=== PATIENT | female | born 1955 | race Caucasian/White ===

== ENCOUNTER 2018-05-02 18:50 | Inpatient (IN) | payer OTHER ==
--- NOTE | 2018-05-02 19:20 | PDOC ---
History of Present Illness - General History Source: Patient, Friend Exam Limitations: No Limitations - History of Present Illness Initial Comments: 05/02/18 22:13 Patient is a 62 year old female with a significant past medical history of who was brought by EMS to the ED with complaints of dizziness that began early this evening. Patient reports waking up this morning at 10 feeling progressively dizzy. As per patient's neighbor, he states finding patient this evening at 5pm. He reports patient has been experiencing decreased appetite for the last x3 days, stating she has only been ingesting soup and has experienced x1 episode of non bloody vomiting, saturday afternoon. Denies chest pain, Sob. Denies nausea, vomiting. Denies contact with sick individuals, out of state travelling. Denies fevers, chills. Denies dysuria, hematuria, constipation, diarrhea. Denies change in vision, head trauma. Denies any other symptoms. Allergies: Penicillin. 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 No smoking. No alcohol. No illicit drugs. Surgical history: None PMD: None <Demetri Mckeon - Last Filed: 05/02/18 23:34> <Gabriella Mccray - Last Filed: 05/03/18 01:38> - General Stated Complaint: BACK PAIN Time Seen by Provider: 05/02/18 19:15 Past History <Demetri Mckeon - Last Filed: 05/02/18 23:34> <Gabriella Mccray - Last Filed: 05/03/18 01:38> - Past Medical History Allergies/Adverse Reactions: Allergies Allergy/AdvReac Type Severity Reaction Status Date / Time Penicillins Allergy Verified 05/02/18 19:45 Home Medications: Ambulatory Orders Atenolol/Chlorthalidone [Atenolol-Chlorthalidone 100-25] 1 each PO DAILY Cholecalciferol (Vitamin D3) [Vitamin D3] 5,000 unit PO DAILY 05/02/18 Garlic 1,000 mg PO DAILY 05/02/18 Review of Systems - Review of Systems Able to Perform ROS?: Yes Comments:: 05/02/18 22:13 GENERAL/CONSTITUTIONAL: No fever or chills. No weakness. HEAD, EYES, EARS, NOSE AND THROAT: No change in vision. No ear pain or discharge. No sore throat. CARDIOVASCULAR: No chest pain or shortness of breath. RESPIRATORY: No cough, wheezing, or hemoptysis. GASTROINTESTINAL: No nausea, vomiting, diarrhea or constipation. GENITOURINARY: No dysuria, frequency, or change in urination. MUSCULOSKELETAL: No joint or muscle swelling or pain. No neck or back pain. SKIN: No rash NEUROLOGIC: +Dizziness. No headache, vertigo, loss of consciousness, or change in strength/sensation. ENDOCRINE: No increased thirst. No abnormal weight change. HEMATOLOGIC/LYMPHATIC: No anemia, easy bleeding, or history of blood clots. ALLERGIC/IMMUNOLOGIC: No hives or skin allergy. All Other Systems: Reviewed and Negative <Demetri Mckeon - Last Filed: 05/02/18 23:34> *Physical Exam - Vital Signs Last Vital Signs Temp Pulse Resp BP Pulse Ox 99.8 F H 130 H 25 H 107/56 96 05/02/18 19:48 05/02/18 20:05 05/02/18 19:48 05/02/18 19:48 05/02/18 20:05 - Physical Exam Comments: 05/02/18 22:13 GENERAL: Awake, alert, and fully oriented, in no acute distress HEAD: No signs of trauma EYES: +Scleral icterus. PERRLA, EOMI,, conjunctiva clear ENT: +Mouth Extremely Dry. Auricles normal inspection, hearing grossly normal, nares patent, oropharynx clear without exudates. NECK: Normal ROM, supple, no lymphadenopathy, JVD, or masses LUNGS: Breath sounds equal, clear to auscultation bilaterally. No wheezes, and no crackles HEART: +Tachycardic. Regular rhythm, normal S1 and S2, no murmurs, rubs or gallops ABDOMEN: Soft, nontender, normoactive bowel sounds. No guarding, no rebound. No masses EXTREMITIES: Normal range of motion, no edema. No clubbing or cyanosis. No cords, erythema, or tenderness MUSCULOSKELETAL: +Lower back midline tenderness. NEUROLOGICAL: +AAOx1. +following commands. +States lives with son,who is in [place], +Believes it to be year 1991. +Babinski's down. +Romberg negative. + Strength equal in all x4 extremities. Cranial nerves II through XII grossly intact. Normal speech, SKIN: Warm, Dry, normal turgor, no rashes or lesions noted. <LindaDemetri - Last Filed: 05/02/18 23:34> Heart Score/ECG Review - ECG Intrepretation Comment:: 05/02/18 20:16 Completed @19:28:33 Poor data quality, interpretation may be adversely affected Sinus Tachycardia Possible Left atrial enlargement Left ventricular hypertrophy with repolarization abnormality Abnormal ECG Vent. rate [address] interval 124 ms QRS duration 72 ms <Demetri Mckeon - Last Filed: 05/02/18 23:34> ED Treatment Course - LABORATORY CBC & Chemistry Diagram: 05/02/18 19:59 05/02/18 20:45 - ADDITIONAL ORDERS Additional order review: 05/02/18 19:59 RBC 4.96 MCV 78.6 L MCHC 33.3 RDW 15.2 MPV 11.8 H Neutrophils % 80.0 Lymphocytes % 16.6 Monocytes % 2.9 L Eosinophils % 0.1 Basophils % 0.4 - Medications Given in the ED: ED Medications Discontinued Medications Generic Name Dose Route Start Last Admin Trade Name Kia PRN Reason Stop Dose Admin Acetaminophen 1,000 mg 05/02/18 20:10 05/02/18 20:13 Ofirmev Injection - IVPB 05/02/18 20:11 1,000 mg ONCE ONE Administration Sodium Chloride 1,000 ml 05/02/18 20:10 05/02/18 20:13 Normal Saline - IV 05/02/18 20:11 1,000 ml ONCE ONE Administration <LindaDemetri - Last Filed: 05/02/18 23:34> - LABORATORY CBC & Chemistry Diagram: 05/02/18 19:59 05/02/18 20:45 <Gabriella Mccray - Last Filed: 05/03/18 01:38> Medical Decision Making - Medical Decision Making 05/02/18 20:36 Pt comes with confusion and fever and severe dehydration. Complaint of back pain x 3 days, decreased appetite and intake x 3 days also with nausea and an episode of vomtiing. Today her roommate came home at 5P and found that she was confused and not acting her self and called 911. He last saw her at 5AM when he left the house. 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 05/02/18 23:31 Pt keeps moaning about her back pain, unclear if she may have a spinal abscess or occult infection, pt's CT TL spine are normal however. On arrival pt's pulsox was low. Portable chest is inconclusive; CT scan demonstrates small infiltrate in the basilar area. Also small pleural effusion. Pt will be treated with levaquin as she is PCN allergic. <Gabriella Mccray - Last Filed: 05/03/18 01:38> *DC/Admit/Observation/Transfer - Attestations Scribe Attestion: 05/02/18 22:14 Documentation prepared by Demetri Mckeon, acting as emergency medical tech for Gabriella Mccray MD. <Demetri Mckeon - Last Filed: 05/02/18 23:34> - Discharge Dispostion Decision to Admit order: Yes <Gabriella Mccray - Last Filed: 05/03/18 01:38> Diagnosis at time of Disposition: Secondary hyperthyroidism, Pneumonia, Dehydration, Hypokalemia, Back pain, Confusion, Altered mental status - Discharge Dispostion Condition at time of disposition: Guarded
[2018-05-02 20:05] LABS: BASO % 0.4 % (0-2.0); EOS % 0.1 % (0-4.5); LYMPH % 16.6 % (8-40); MCH 26.1 pg (25.7-33.7); MCHC 33.3 g/dl (32.0-36.0); MEAN CELL VOLUME 78.6 fl (80-96); MEAN PLT VOLUME 11.8 fl (7.5-11.1); MONO % 2.9 % (3.8-10.2); PLATELET COUNT 101 K/MM3 (134-434); RBC 4.96 M/mm3 (3.60-5.2); RDW 15.2 % (11.6-15.6); WHITE BLOOD COUNT 25.6 K/mm3 (4.0-10.0)
[2018-05-02] MEDS ORDERED: SODIUM CHLORIDE 0.9% 500 ML INFUS.BAG IV ONE (20:10)
[2018-05-02] MEDS ORDERED: ACETAMINOPHEN 1000 MG/100 ML VIAL (NON FORMULARY) IVPB ONE (20:10)
[2018-05-02] MEDS ORDERED: ACETAMINOPHEN INJECTION 100 ML IVPB ONE (20:14)
[2018-05-02 20:23] LABS: VENOUS PC02 46.8 mmHg (38-52); VENOUS PH 7.33 (7.32-7.42); VENOUS PO2 32.9 mmHg (28-48)
[2018-05-02 20:30] LABS: URINE APPEARANCE CLEAR; URINE BILIRUBIN NEGATIVE (<2.0 mg/dL); URINE COLOR YELLOW; URINE GLUCOSE (UA) NEGATIVE (NEGATIVE); URINE KETONE NEGATIVE (NEGATIVE)
[2018-05-02 20:31] LABS: INR 1.24 (0.82-1.09)
[2018-05-02 20:31] LABS: URINE BLOOD 2+ (NEGATIVE); URINE LEUK ESTERASE 1+ (NEGATIVE); URINE NITRITE NEGATIVE (NEGATIVE); URINE PROTEIN NEGATIVE (NEGATIVE); URINE UROBILINOGEN 4 mg/dL (0.2-1.0)
[2018-05-02 20:33] LABS: EPI CELLS FEW /HPF (FEW); URINE BACTERIA RARE /hpf (NONE SEEN); URINE MUCUS MODERATE
[2018-05-02 21:49] LABS: ALBUMIN 2.3 g/dl (3.4-5.0); ANION GAP 10 (8-16); BLOOD UREA NITROGEN 49 mg/dL (7-18); CALCIUM 7.9 mg/dL (8.5-10.1); CHLORIDE 108 mmol/L (98-107); CO2 25 mmol/L (21-32); CREATININE 2.3 mg/dL (0.55-1.02); GLUCOSE,RANDOM 119 mg/dL (74-106); POTASSIUM 3.1 mmol/L (3.5-5.1); SGOT/AST 83 U/L (15-37); SGPT/ALT 95 U/L (12-78); SODIUM 143 mmol/L (136-145)
[2018-05-02 21:59] LABS: ALK PHOS 230 U/L (45-117); BILIRUBIN,TOTAL 5.4 mg/dL (0.2-1.0); TOT PROT 5.7 g/dl (6.4-8.2)
[2018-05-02 22:12] LABS: ANISOCYTOSIS 1+; MACROCYTOSIS 1+
[2018-05-02 22:15] LABS: PLATELET ESTIMATE SLT DECREASE
[2018-05-02] MEDS ORDERED: MAGNESIUM SULF 50% (8.12 MEQ/2 ML-1 GM VIAL) IVPB ONE (22:15)
[2018-05-02] MEDS ORDERED: POTASSIUM CHLORIDE TABS 20 MEQ TABLET.ER (FP) PO ONE (22:16)
[2018-05-02] MEDS ORDERED: morphine CARPU-JECT 2 MG/1 ML DISP.SYRIN ONE (22:16)
[2018-05-02] MEDS ORDERED: morphine CARPU-JECT 2 MG/1 ML DISP.SYRIN IVPUSH ONE (22:20)
[2018-05-02] MEDS ORDERED: MAGNESIUM SULF 50% (8.12 MEQ/2 ML-1 GM VIAL) ONE (22:57)
[2018-05-02] MEDS: KCL 10 MEQ IVPB 10 MEQ/100 ML INFUS.BAG IVPB SCH ×2 (23:03→23:50)
[2018-05-02] MEDS ORDERED: DEXAMETHASONE 4 MG TABLET (FP) PO ONE (23:15)
[2018-05-02 23:41] LABS: URINE APPEARANCE CLOUDY; URINE BLOOD 2+ (NEGATIVE); URINE COLOR AMBER; URINE GLUCOSE (UA) NEGATIVE (NEGATIVE); URINE KETONE NEGATIVE (NEGATIVE); URINE LEUK ESTERASE NEGATIVE (NEGATIVE); URINE NITRITE NEGATIVE (NEGATIVE); URINE UROBILINOGEN 4.0 E.U/dl mg/dL (0.2-1.0)
[2018-05-02 23:42] LABS: URINE PROTEIN 2+ (NEGATIVE)
[2018-05-02 23:45] LABS: EPI CELLS RARE /HPF (FEW); URINE BACTERIA RARE /hpf (NONE SEEN); URINE MUCUS RARE
[2018-05-03] MEDS ORDERED: DEXAMETHASONE SOD PHOSPHATE 4 MG/1 ML VIAL ONE (00:19)
[2018-05-03] MEDS ORDERED: SODIUM CHLORIDE 1,000 ML IV STA (00:41)
[2018-05-03] MEDS: KCL 10 MEQ IVPB 10 MEQ/100 ML INFUS.BAG IVPB SCH (00:51)
[2018-05-03] MEDS ORDERED: POTASSIUM CHLORIDE TABS 20 MEQ TABLET.ER (FP) PO ONE (00:53)
[2018-05-03] MEDS ORDERED: KCL 10 MEQ IVPB 10 MEQ/100 ML INFUS.BAG IVPB ONE (00:54)
--- NOTE | 2018-05-03 02:35 | HP ---
CHIEF COMPLAINT: leg pain, dizziness, nausea/vomiting PCP: none HISTORY OF PRESENT ILLNESS: Pt is a 62 y/o F very poor historian who reportedly initially complained of dizziness on arriving in the ED. In my interview, she first complained of pain in the right thigh. She later endorsed dizziness, and upon prompting, she admitted to vomiting food contents and roughly a spoon full of blood yesterday . Pt was not able to give much detail beyond that. ER course was notable for: (1) WBC 25, plt 101, K 3.1 (repleted in ED), BUN/Ergonomist 49/2.3, Lactate 2.4 -> 1.6 , Tbili 5.4, AST 83, ALT 95, ALK Phos 230, TSH 0.14, UA 2+ protein / 2+ blood / urobilinogen 4 (2) CXR rotated pending official read, Head CT: s/p craniotomy/focal nonspecific thickening ? malignancy / encephalomalacia / ventricular dilation, Chest CT: small right postero-basilar infiltrate, T-spine & L-spine: L4-5, L5- S1 b/l degenerative facet deterioration. (3) Pt received 1 L NS, Levaquin, Recent Travel: denies PAST MEDICAL HISTORY: denies PAST SURGICAL HISTORY: denies Social History: Smoking: former smoker 4 cig/d x 8 years quit several years ago Alcohol: denies Drugs: denies Family History: denies Allergies Penicillins Allergy (Verified 05/02/18 19:45) HOME MEDICATIONS: Home Medications Medication Instructions Recorded Atenolol/Chlorthalidone 1 each PO DAILY 05/02/18 [Atenolol-Chlorthalidone 100-25] Cholecalciferol (Vitamin D3) 5,000 unit PO DAILY 05/02/18 [Vitamin D3] Garlic 1,000 mg PO DAILY 05/02/18 REVIEW OF SYSTEMS CONSTITUTIONAL: fever, chills, diaphoresis, loss of appetite Absent: , generalized weakness, malaise, weight change HEENT: Absent: rhinorrhea, nasal congestion, throat pain, throat swelling, difficulty swallowing, mouth swelling, ear pain, eye pain, visual changes CARDIOVASCULAR: Absent: chest pain, syncope, palpitations, irregular heart rate, lightheadedness , peripheral edema RESPIRATORY: shortness of breath Absent: cough, , dyspnea with exertion, orthopnea, wheezing, stridor, hemoptysis GASTROINTESTINAL:nausea, vomiting Absent: abdominal pain, abdominal distension, , diarrhea, constipation, melena, hematochezia GENITOURINARY: Absent: dysuria, frequency, urgency, hesitancy, hematuria, flank pain, genital pain MUSCULOSKELETAL: back pain Absent: myalgia, arthralgia, joint swelling,, neck pain SKIN: Absent: rash, itching, pallor HEMATOLOGIC/IMMUNOLOGIC: Absent: easy bleeding, easy bruising, lymphadenopathy, frequent infections ENDOCRINE: Absent: unexplained weight gain, unexplained weight loss, heat intolerance, cold intolerance NEUROLOGIC: dizziness Absent: headache, focal weakness or paresthesias, , unsteady gait, seizure, mental status changes, bladder or bowel incontinence PSYCHIATRIC: Absent: anxiety, depression, suicidal or homicidal ideation, hallucinations. PHYSICAL EXAMINATION Vital Signs - 24 hr 05/02/18 05/02/18 05/02/18 19:48 19:50 20:05 Temperature 99.8 F H Pulse Rate 135 H 132 H 130 H Pulse Rate [ Apical] Respiratory 25 H Rate Blood Pressure 107/56 Blood Pressure [Right Arm] O2 Sat by Pulse 89 L 96 96 Oximetry (%) 05/02/18 05/02/18 05/03/18 21:27 23:43 01:17 Temperature 100.3 F H Pulse Rate Pulse Rate [ 125 H Apical] Respiratory 38 H Rate Blood Pressure Blood Pressure 131/75 [Right Arm] O2 Sat by Pulse 96 94 L Oximetry (%) PE Gen: somewhat agitated moving frequently in bed. Mild resp distress, mild diaphoresis HEENT: PERRLA, EOMI, dry mucous membranes Neck: supple, no JVD, no bruits, Brudzinski negative Cor: Tachycardic, preserved S1, S2, no murmurs/rubs/gallops Pulm: cta b/l abd: obese, soft, nontender, no guarding, Calvert's neg Ext: 2+ distal pulses, no edema Laboratory Results - last 24 hr 05/02/18 05/02/18 05/02/18 19:58 19:59 19:59 WBC 25.6 H RBC 4.96 Hgb 13.0 Hct 39.0 MCV 78.6 L MCH 26.1 MCHC 33.3 RDW 15.2 Plt Count 101 L MPV 11.8 H Neutrophils % 80.0 Neutrophils % (Manual) 80.0 Lymphocytes % 16.6 Lymphocytes % (Manual) 16.0 Monocytes % 2.9 L Monocytes % (Manual) 3 L Eosinophils % 0.1 Eosinophils % (Manual) 1.0 Basophils % 0.4 Nucleated RBC % 0 Hypochromia 1+ Platelet Estimate Slt decrease Platelet Comment Slide scanned Anisocytosis 1+ Macrocytosis 1+ PT with INR 14.00 H INR 1.24 H VBG pH POC VBG pCO2 POC VBG pO2 Mixed VBG HCO3 Sodium Potassium Chloride Carbon Dioxide Anion Gap BUN Creatinine Creat Clearance w eGFR POC Glucometer [phone] Random Glucose Lactic Acid Calcium Total Bilirubin AST ALT Alkaline Phosphatase Ammonia Creatine Kinase Troponin I Total Protein Albumin TSH Urine Color Urine Appearance Urine pH Ur Specific [place] Urine Protein Urine Glucose (UA) Urine Ketones Urine Blood Urine Nitrite Urine Bilirubin Urine Urobilinogen Ur Leukocyte Esterase Urine WBC (Auto) Urine RBC (Auto) Ur Epithelial Cells Urine Bacteria Urine Mucus 05/02/18 05/02/18 05/02/18 19:59 19:59 20:02 WBC RBC Hgb Hct MCV MCH MCHC RDW Plt Count MPV Neutrophils % Neutrophils % (Manual) Lymphocytes % Lymphocytes % (Manual) Monocytes % Monocytes % (Manual) Eosinophils % Eosinophils % (Manual) Basophils % Nucleated RBC % Hypochromia Platelet Estimate Platelet Comment Anisocytosis Macrocytosis PT with INR INR VBG pH 7.33 POC VBG pCO2 46.8 POC VBG pO2 32.9 Mixed VBG HCO3 24.1 Sodium Cancelled Potassium Cancelled Chloride Cancelled Carbon Dioxide Cancelled Anion Gap Cancelled BUN Cancelled Creatinine Cancelled Creat Clearance w eGFR Cancelled POC Glucometer Random Glucose Cancelled Lactic Acid 2.4 H* Calcium Cancelled Total Bilirubin Cancelled AST Cancelled ALT Cancelled Alkaline Phosphatase Cancelled Ammonia Creatine Kinase Cancelled Troponin I Cancelled Total Protein Cancelled Albumin Cancelled TSH Urine Color Urine Appearance Urine pH Ur Specific [place] Urine Protein Urine Glucose (UA) Urine Ketones Urine Blood Urine Nitrite Urine Bilirubin Urine Urobilinogen Ur Leukocyte Esterase Urine WBC (Auto) Urine RBC (Auto) Ur Epithelial Cells Urine Bacteria Urine Mucus 05/02/18 05/02/18 05/02/18 20:05 20:29 20:45 WBC RBC Hgb Hct MCV MCH MCHC RDW Plt Count MPV Neutrophils % Neutrophils % (Manual) Lymphocytes % Lymphocytes % (Manual) Monocytes % Monocytes % (Manual) Eosinophils % Eosinophils % (Manual) Basophils % Nucleated RBC % Hypochromia Platelet Estimate Platelet Comment Anisocytosis Macrocytosis PT with INR INR VBG pH POC VBG pCO2 POC VBG pO2 Mixed VBG HCO3 Sodium 143 Potassium 3.1 L Chloride 108 H Carbon Dioxide 25 Anion Gap 10 BUN 49 H Creatinine 2.3 H Creat Clearance w eGFR 21.35 POC Glucometer Random Glucose 119 H Lactic Acid Calcium 7.9 L Total Bilirubin 5.4 H AST 83 H ALT 95 H Alkaline Phosphatase 230 H Ammonia Creatine Kinase 143 Troponin I < 0.02 Total Protein 5.7 L Albumin 2.3 L TSH Cancelled 0.14 L Urine Color Yellow Urine Appearance Clear Urine pH 5.0 Ur Specific [place] 1.026 Urine Protein Negative Urine Glucose (UA) Negative Urine Ketones Negative Urine Blood 2+ H Urine Nitrite Negative Urine Bilirubin Negative Urine Urobilinogen 4 H Ur Leukocyte Esterase 1+ H Urine WBC (Auto) 15 Urine RBC (Auto) 25 Ur Epithelial Cells Few Urine Bacteria Rare Urine Mucus Moderate ASSESSMENT/PLAN: Pt is a 62 y/o F w/ unknown PMH who presented to the ED with complaint of dizziness. Pt was found to have severe sepsis and was admitted. #Severe sepsis 2/2 ? CAP -tachycardic, tachypnic, WBC 25, lactate 2.4 -Pt received 1 bolus NS, and lactate dropped to 1.6 -Placed on Levaquin -O2 -CURB-65: 3 -CXR: RLL infiltrate -CT chest: RLL infiltrate w/ edema, nonspecific LN enlargement, hepatic steatosis -CT head: s/p craniotomy, nonfocal thickening of midline -CT T-spine/L-spine: L4-5, L5-S1 b/l degenerative changes -BCx, UCx pending #Hepatic steatosis -transaminitis -hyperbilirubinemia #?COPD -smoking history -on approaching pt, she was off O2, and sat was 80%. Pt was put on O2 3L and sats went to 92%. She was later put on nonrebreather mask, and sats went to 98% #Back Pain -T-spine, L-spine b/l degeneration on CT -stable at this moment #Confusion -tox screen #FEN -on NS bolus -hypokalemia repleted in ED -regular diet #PPx -SCDs #Dispo -Admit to ICU David Black MD PGY-1 IM Visit type - Emergency Visit Emergency Visit: Yes ED Registration Date: 05/03/18 Care time: The patient presented to the Emergency Department on the above date and was hospitalized for further evaluation of their emergent condition. - New Patient This patient is new to me today: Yes Date on this admission: 05/03/18 - Critical Care Critical Care patient: No Hospitalist Screening - Colonoscopy Questionnaire Colonoscopy Questionnaire: Colonoscopy Questionnaire - Patient: 50 - 75 years old and never had a screening colonoscopy: Unknown History of colon or rectal polyps, or CA: Unknown History of IBD, Crohn's disease or UC: Unknown History of abdominal radiation therapy as a child: Unknown - Relative: 1 with colon or rectal CA, or polyps at age 60 or younger: Unknown Colon or rectal CA diagnosed at age 45 or younger: Unknown Multiple relatives with colon or rectal CA: Unknown - Outcome: Screening Result: Negative Screen
[2018-05-03 03:09] LABS: COCAINE, UR NEGATIVE ng/ml (CUTOFF=300); METHADONE, UR NEGATIVE ng/ml (CUTOFF=300); PHENCYCLIDINE,URINE NEGATIVE ng/ml (CUTOFF=25); URINE AMPHETAMINES NEGATIVE ng/ml (CUTOFF=500); URINE BARBITURATES NEGATIVE ng/ml (CUTOFF=200); URINE BENZODIAZEPINES NEGATIVE ng/ml (CUTOFF=200)
[2018-05-03 03:12] LABS: OPIATES, URI POSITIVE ng/ml (CUTOFF=300)
--- NOTE | 2018-05-03 04:33 | CONSULT ---
Consult Consult Specialty:: pulm critical care Referred by:: melinda han Reason for Consultation:: Sepsis - History of Present Illness Chief Complaint: confusion History of Present Illness: This is a 62 yo woman who presented to [facility] ED w/ worsening mental status according to her roommate. In the ED pt was noted to be febrile, confused, agitated and was pulling lines, and desaturated 80s-low 90s on RA, placed on a venti-mask. She was started on levaquin and IVF bolus x1 liter. Labs were remarkable for eleavted LFTs, lact 2.4, WBC 25, creat 2.3, k 3.1. Admitted to ICU for further management of severe sepsis and hypoxia. Upon arrival to ICU, pt is confused, fijian speaking only, not cooperative with directions. VSS. Febrile to 100.3, HR 80s, Bp 130s/70s. Started on Bipap, as O2 sats 80s. ABG done. Continued on levaquin, vanco added. 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) ...: No - Smoking History Smoking history: Former smoker Have you smoked in the past 12 months: No Home Medications - Allergies Allergies/Adverse Reactions: Allergies Allergy/AdvReac Type Severity Reaction Status Date / Time Penicillins Allergy Verified 05/02/18 19:45 - Home Medications Home Medications: Ambulatory Orders Atenolol/Chlorthalidone [Atenolol-Chlorthalidone 100-25] 1 each PO DAILY Cholecalciferol (Vitamin D3) [Vitamin D3] 5,000 unit PO DAILY 05/02/18 Garlic 1,000 mg PO DAILY 05/02/18 Family Disease History - Family Disease History Family History: Unable to Obtain Review of Systems Unable to obtain ROS, reason: patient very confused, Physical Exam Vital Signs: Vital Signs Temperature 100.3 F H 05/02/18 23:43 Pulse Rate 84 05/03/18 04:00 Respiratory Rate 31 H 05/03/18 03:50 Blood Pressure 90/50 05/03/18 03:50 O2 Sat by Pulse Oximetry (%) 98 05/03/18 04:28 Constitutional: Yes: Well Nourished, Anxious Eyes: Yes: WNL HENT: Yes: WNL, Atraumatic, Normocephalic Neck: Yes: WNL Cardiovascular: Yes: WNL Respiratory: Yes: On BiPap, Rhonchi Gastrointestinal: Yes: WNL, Normal Bowel Sounds, Soft ...Rectal Exam: Yes: Deferred Renal/: Yes: WNL Breast(s): Yes: WNL Musculoskeletal: Yes: WNL Extremities: Yes: WNL Edema: No Peripheral Pulses WNL: Yes Integumentary: Yes: WNL Wound/Incision: No: Clean/Dry, Well Approximated, Sutures Intact, Crumrod Intact , Steri Strips, Open to air, Dressing Dry and Intact, Dressing Removed, Crumrod Removed, Sutures Removed, Draining, Reddened, Bleeding, Excoriated, Unapproximated, Other Neurological: Yes: WNL ...Motor Strength: WNL Psychiatric: Yes: Agitated Labs: CBC, BMP 05/02/18 19:59 05/02/18 20:45 Imaging - Results Chest X-ray: Image Reviewed (RLL infiltrate and pleural effusion) Cat Scan: Report Reviewed (Chest CT shows RLL infiltrates and small pleural effusion, sevreal mildly enlarged mediastinal lymph nodes. Although Abdomen CT not performed, the Chest CT captured diffuse hepatic steatosis and splenomegaly and left adrenal enlargement ?adenoma. Lumbar and thoracic CT showed no fx, but degenerative changes), Image Reviewed Problem List - Problems (1) Altered mental status Code(s): R41.82 - ALTERED MENTAL STATUS, UNSPECIFIED (2) Back pain Code(s): M54.9 - DORSALGIA, UNSPECIFIED (3) Confusion Code(s): R41.0 - DISORIENTATION, UNSPECIFIED (4) Dehydration Code(s): E86.0 - DEHYDRATION (5) Hypokalemia Code(s): E87.6 - HYPOKALEMIA (6) Pneumonia Code(s): J18.9 - PNEUMONIA, UNSPECIFIED ORGANISM (7) Secondary hyperthyroidism Code(s): E05.90 - THYROTOXICOSIS, UNSP WITHOUT THYROTOXIC CRISIS OR STORM Assessment/Plan This is a 62 yo woman who was brought to [facility] ED by roommate for worsening mental status. In the ED pt was noted to be febrile, confused, agitated, pulling lines, and desaturated 80s-low 90s on RA, placed on a venti-mask. Complained of back pain. [id number] x1 given. Labs were remarkable for elevated LFTs, lact 2.4, WBC 25, creat 2.3, k 3.1, TSH 0.4. CXR and Chest CT shows RLL infiltrates and small pleural effusion, sevreal mildly enlarged meduiastinal lymph nodes. Although Abdomen CT not performed, the Chest CT captured diffuse hepatic steatosis and splenomegaly and left adrenal enlargement ?adenoma. Lumbar and thoracic CT showed no fx, but degenerative changes. She was started on levaquin and given IVF bolus x1 liter, potassium repleted. Blood and urine culture sent. Admitted to ICU for further management of severe sepsis and hypoxia. Upon arrival to ICU, VSS, but pt is confused, fijian speaking only, not cooperative with directions. On exam rhonchi and diminished LLL. Started on Bipap, as O2 sats in 80s. ABG done. Continued on levaquin, vanco added. # Toxic-metabolic encephalopathy most likely in the setting of severe sepsis vs. HE in setting of elevated liver enzymes vs. hydrocephalus given Head CT shows mild hydrocephalus vs. central atrophy - cont to monitor MS - neuro checks - neuro consult - f/u utox # hypoxic resp failure in the setting of likely community acquired PNA; cxr and chest CT c/w RLL infitrates and pleyural effusion - supplemental O2 - BIpap - ABG - CXR - cont abx #Severe sepsis in the setting of SIRS criteria and multiple organ dysfunction ( elevated LFTs, encephalopathy, JUAN PABLO) most likely 2/2 community acquired pneumonia c/f bactremia. - cont levofloxacin - vanco - IVF - trend lactic acid - f/u blood and urine cultures - trend CBC, CMP #Acute Kidney Injury in the setting of severe sepsis, creat 2.3 - trend creat - strict I & O - f/u urine lytes #Hyperbilirubinemia and elevated LFTs in the setting of severe sepsis +/- underlying fatty liver disease and/or gallbladder disease; chest CT showed some fatty infiltrates of liver. - trend LFTs - abdominal US or CT to r/o gallbladder and liver disease #Hypokalemia k= 3.1 - replete K - trend BMP DEVIKA [facility] Pulm Critical Care CC time 34mins
[2018-05-03 05:32] VITALS: BMI 34.8
--- NOTE | 2018-05-03 05:41 | PN ---
Teaching Attending Note Name of Resident: David Black ATTENDING PHYSICIAN STATEMENT I saw and evaluated the patient. I reviewed the resident's note and discussed the case with the resident. I agree with the resident's findings and plan as documented. SUBJECTIVE: OBJECTIVE: ASSESSMENT AND PLAN: this is a 62 y f presented to the hospital with worsening mental status according to her roommate, in the ER the patient was noted to be febrile. she was admitted to the MICU for SIRS with severe sepsis - patient was confused, agitated and was pulling line, and her oxygen saturation dropped to the upper 80s, low 90s on room air. patient was placed on a venti-mask and the decision was to admit her to the MICU for further management SIRS with sepsis 2/2 Community acquired pneumonia: - start the patient for CAP treatment with levofloxacin 750mg daily - admit to the MICU - IVF hydration trend lactic acid Multi-organ dysfunction 2/2 to sepsis ( elevated LFT, AMS, JUAN PABLO) manage the sepsis obtain medical records from the patient if feasible
[2018-05-03 05:52] LABS: ARTERIAL BLD GAS O2 SATURATION 96.2 % (90-98.9); ARTERIAL BLOOD GAS BASE EXCESS -4.8 meq/l (-2-2); ARTERIAL BLOOD GAS PCO2 41.6 mmHg (35-45); ARTERIAL BLOOD GAS PO2 91.1 mmHg (80-100); ARTERIAL BLOOD GAS pH 7.32 (7.35-7.45)
--- NOTE | 2018-05-03 07:51 | PN ---
Progress Note, Physician Chief Complaint: ID Low grade temps on admission The patient though alert offers no history and has difficulty answering questions She was tachypneic hypoxic on admission with low grade fever - Current Medication List Current Medications: Active Medications Chlorhexidine Gluconate (Hibiclens For Decolonization -) 1 applic TP HS NABEEL Cholestyramine Resin (Questran Packet -) 4 gm PO DAILY NABEEL Vancomycin HCl 1,000 mg/ (Dextrose) 250 mls @ 166.667 mls/hr IVPB ONCE ONE; Protocol Stop: 05/03/18 09:29 Levofloxacin (Levaquin) 750 mg PO DAILY NABEEL Mupirocin (Bactroban Ointment (For Decolonization) -) 1 applic NS BID NABEEL Stop: 05/08/18 09:59 - Objective Vital Signs: Vital Signs Temperature 97.7 F 05/03/18 06:00 Pulse Rate 90 05/03/18 06:00 Respiratory Rate 24 05/03/18 06:00 Blood Pressure 92/61 05/03/18 06:00 O2 Sat by Pulse Oximetry (%) 98 05/03/18 05:00 Constitutional: Yes: Moderate Distress Neck: Yes: Supple Cardiovascular: Yes: Tachycardia, S1, S2 Respiratory: Yes: Tachypnea Gastrointestinal: Yes: Soft. No: Tenderness Edema: No Labs: CBC, BMP 05/02/18 19:59 05/02/18 20:45 INR, PTT INR 1.24 (0.82-1.09) H 05/02/18 19:59 Problem List - Problems (1) Altered mental status Code(s): R41.82 - ALTERED MENTAL STATUS, UNSPECIFIED (2) Pneumonia Code(s): J18.9 - PNEUMONIA, UNSPECIFIED ORGANISM (3) Sepsis Code(s): A41.9 - SEPSIS, UNSPECIFIED ORGANISM Assessment/Plan Laboratory Tests 05/02/18 05/02/18 05/02/18 19:59 19:59 20:29 WBC 25.6 H Hgb 13.0 Hct 39.0 Plt Count 101 L INR 1.24 H ABG pH ABG pCO2 at Pt Temp ABG pO2 at Pt Temp Sodium Potassium Creat Clearance w eGFR Total Bilirubin Alkaline Phosphatase Troponin I Ur Leukocyte Esterase 1+ H Urine WBC (Auto) 15 Urine RBC (Auto) 25 Opiates Screen 05/02/18 05/03/18 05/03/18 20:45 01:50 05:35 WBC Hgb Hct Plt Count INR ABG pH 7.32 L ABG pCO2 at Pt Temp 41.6 ABG pO2 at Pt Temp 91.1 Sodium 143 Potassium 3.1 L Creat Clearance w eGFR 21.35 Total Bilirubin 5.4 H Alkaline Phosphatase 230 H Troponin I < 0.02 Ur Leukocyte Esterase Urine WBC (Auto) Urine RBC (Auto) Opiates Screen Positive Assessment Meets criteria for sepsis. Given pos drug screen for opiates possibility of aspiration with pneumonia and sepsis considered. She can offer no history though she is alert. Allergy PCN Plan Cultures LGA Clindamycin Levofloxacin (vanco given ) Hardeep MEDRANO
[2018-05-03] MEDS ORDERED: VANCOMYCIN 1,000 MG in DEXTROSE 5%-WATER - 250 ML IVPB ONE (08:00)
[2018-05-03 08:29] LABS: BASO % 0.4 % (0-2.0); EOS % 0.2 % (0-4.5); HEMATOCRIT 35.4 % (32.4-45.2); HEMOGLOBIN 11.9 GM/dL (10.7-15.3); LYMPH % 17.7 % (8-40); MCH 26.6 pg (25.7-33.7); MCHC 33.7 g/dl (32.0-36.0); MONO % 0.9 % (3.8-10.2); NEUT % 80.8 % (42.8-82.8); PLATELET COUNT 61 K/MM3 (134-434); RBC 4.48 M/mm3 (3.60-5.2); RDW 15.6 % (11.6-15.6); WHITE BLOOD COUNT 27.9 K/mm3 (4.0-10.0)
[2018-05-03 08:50] LABS: ANION GAP 9 (8-16); BLOOD UREA NITROGEN 48 mg/dL (7-18); CHLORIDE 111 mmol/L (98-107); CO2 24 mmol/L (21-32); CREATININE 1.8 mg/dL (0.55-1.02); GLUCOSE,RANDOM 67 mg/dL (74-106); POTASSIUM 3.8 mmol/L (3.5-5.1); SGOT/AST 89 U/L (15-37); SGPT/ALT 87 U/L (12-78); SODIUM 144 mmol/L (136-145)
[2018-05-03 08:51] LABS: ALK PHOS 224 U/L (45-117); BILIRUBIN,TOTAL 6.1 mg/dL (0.2-1.0); TOT PROT 5.3 g/dl (6.4-8.2)
[2018-05-03 08:54] LABS: CALCIUM 8.1 mg/dL (8.5-10.1)
[2018-05-03] MEDS: CLINDAMYCIN 900 MG PREMIX IVPB 900 MG/50 ML BAG IVPB SCH ×3 (09:19→20:00)
--- NOTE | 2018-05-03 09:41 | PN ---
Progress Note, Physician - Current Medication List Current Medications: Active Medications Chlorhexidine Gluconate (Hibiclens For Decolonization -) 1 applic TP HS NABEEL Cholestyramine Resin (Questran Packet -) 4 gm PO DAILY NABEEL Levofloxacin (Levaquin 250 Mg Premixed Ivpb -) 250 mg in 50 mls @ 50 mls/hr IVPB DAILY@2200 NABEEL; Protocol Last Admin: 05/03/18 09:18 Dose: 50 mls/hr Clindamycin Phosphate (Cleocin 900 Mg Premix Ivpb -) 900 mg in 50 mls @ 100 mls /hr IVPB Q8H-IV NABEEL; Protocol Mupirocin (Bactroban Ointment (For Decolonization) -) 1 applic NS BID NABEEL Stop: 05/08/18 09:59 - Objective Vital Signs: Vital Signs Temperature 98.9 F 05/03/18 08:00 Pulse Rate 85 05/03/18 08:28 Respiratory Rate 23 05/03/18 08:00 Blood Pressure 78/54 05/03/18 08:00 O2 Sat by Pulse Oximetry (%) 99 05/03/18 08:28 Cardiovascular: Yes: S1, S2 Respiratory: Yes: Diminished, On Nasal O2 Gastrointestinal: Yes: Normal Bowel Sounds, Soft Neurological: Yes: Alert, Confusion Labs: CBC, BMP 05/03/18 07:45 05/03/18 07:45 INR, PTT INR 1.24 (0.82-1.09) H 05/02/18 19:59 Problem List - Problems (1) Sepsis Assessment/Plan: -tachycardic, tachypnic, WBC 25, lactate 2.4 -Pt received 1 bolus NS, and lactate dropped to 1.6 -Placed on Levaquin -O2 -CURB-65: 3 -CXR: RLL infiltrate -CT chest: RLL infiltrate w/ edema, nonspecific LN enlargement, hepatic steatosis -CT head: s/p craniotomy, nonfocal thickening of midline -CT T-spine/L-spine: L4-5, L5-S1 b/l degenerative changes -BCx, UCx pending -on NS bolus -SCDs -Admit to ICU Code(s): A41.9 - SEPSIS, UNSPECIFIED ORGANISM (2) Altered mental status Assessment/Plan: -DUE TO ABOVE -MONITOR Code(s): R41.82 - ALTERED MENTAL STATUS, UNSPECIFIED (3) Dehydration Code(s): E86.0 - DEHYDRATION (4) Pneumonia Assessment/Plan: -CT NOTED -FOLLOW CXR -PULM/CARDIO Code(s): J18.9 - PNEUMONIA, UNSPECIFIED ORGANISM (5) Thrombocytopenia Assessment/Plan: -monitor Code(s): D69.6 - THROMBOCYTOPENIA, UNSPECIFIED
--- NOTE | 2018-05-03 09:54 | CONS ---
INFECTIOUS DISEASE CONSULTATION DATE OF CONSULTATION: DATE OF DICTATION: 05/03/2018 This is a 62-year-old female who was brought to the emergency room, according to the notes, with dizziness and possible vomiting of food content. The patient is unable to offer any meaningful history. In the emergency room, her white count was found to be 25,000 and she had a low-grade fever. The BUN and creatinine were 49 and 2.3. Her bilirubin was 5.4, AST 83, ALT 95, alkaline phosphatase of 230, lactic acid was 2.4. a chest x-ray showed no acute infiltrate, but a CAT scan of the chest showed a small right posterobasilar infiltrate. CT scan of the head showed no evidence of acute CVA or hemorrhage and a toxicology on admission was positive for opiates. The patient was treated with a dose of vancomycin and levofloxacin and I am asked to see her for further evaluation and treatment. Currently, she is alert. She appears to be [place]-speaking, but can offer little by way of any history, and has difficulty recalling any events prior to her admission. PAST MEDICAL HISTORY: The patient denies. MEDICATIONS: Unknown. SOCIAL HISTORY: Cigarette smoker, apparently gave this up. Denies alcohol or substance abuse. FAMILY HISTORY: Patient unable to provide. REVIEW OF SYSTEMS: Respiratory: Tachypnea noted. No obvious cough. Cardiac: No history of chest pain, palpitations or syncope. Gastrointestinal: No obvious abdominal pain. Positive vomiting of food contents noted in the history of present illness on admission. No hematemesis, blood per rectum. Genitourinary: Denies dysuria or hematuria. PHYSICAL EXAMINATION: Vital signs: The temperature on admission was 99.8, T-maximum 100.3, pulse 125, blood pressure 130/75, respiratory rate 38, O2 saturation 96%. Neck: Supple without adenopathy. Lungs: Diminished breath sounds bilaterally. Heart: S1, S2. Regular rhythm without audible murmur. Abdomen: Soft and nontender without hepatosplenomegaly. Extremities: Without clubbing, cyanosis or edema. LABORATORIES: The white count 25.6, hemoglobin 13, platelets of 101; polys 80%, lymphs 16, monos 2. INR 1.24. AB.32/41/91; oxygen flow 50%. The BUN 49, creatinine 2.3. Bilirubin 5.4, AST 83, ALT 95, alkaline phosphatase 230. Urinalysis with 8 WBCs, 50 RBCs. IMAGING: Head CT scan shows evidence of primary craniotomy with no evidence of acute pathology, mild dilatation of the lateral ventricles with encephalomalacia noted, nonspecific thickening of the interventricular septum noted. ASSESSMENT: A 62-year-old female who presents with altered mental status, fever, leukocytosis, tachycardia, and tachypnea. Meets clinical findings for a diagnosis of sepsis. She has what appears to be a small infiltrate, and with her history of vomiting, may have aspirated. Additional findings include abnormal liver function tests. This may be on the basis of fatty liver, as she does not appear to have evidence of an acute abdomen by examination. That said, she should be covered for aspiration and note that she is allergic to PENICILLIN. She had been given a dose of vancomycin earlier and I will continue clindamycin and levofloxacin. A sonogram of the abdomen should be obtained to evaluate her liver enzymes and the possibility of a biliary tract source of infection. Legionella urinary antigen should be obtained. Critical Care time spent 40 minutes in the ICU. ABILIO GANDHI M.D. [id number]
[2018-05-03] MEDS ORDERED: levoFLOXacin 750 MG TABLET PO SCH (10:00)
--- NOTE | 2018-05-03 10:00 | PN ---
Progress Note (short form) - Note Progress Note: ID Addendum All blood cultures bottles gram positive clusters Informed had coded Just now Vancomycin given would give another 750mg stat dose and check Vanco level tomorrow Source of bacteremia unlclear endocarditis needs to be considered CT head admission no infarct abscess seen Can stop Clinda and Levofloxacin ECHO CRP ESR Hardeep MEDRANO Problem List - Problems (1) Altered mental status Code(s): R41.82 - ALTERED MENTAL STATUS, UNSPECIFIED (2) Pneumonia Code(s): J18.9 - PNEUMONIA, UNSPECIFIED ORGANISM (3) Sepsis Code(s): A41.9 - SEPSIS, UNSPECIFIED ORGANISM
[2018-05-03] MEDS ORDERED: VANCOMYCIN 750 MG in DEXTROSE 5%-WATER - 250 ML IVPB ONE (10:01)
[2018-05-03] MEDS ORDERED: DOPAMINE 400 MG/D5W - 400,000 MCG/250 ML INFUS.BAG IVPB ONE (10:16)
[2018-05-03] MEDS ORDERED: ROCURONIUM BROMIDE 50 MG/5 ML VIAL IVPUSH ONE (10:20)
[2018-05-03 10:21] LABS: ARTERIAL BLD GAS O2 SATURATION 81.5 % (90-98.9); ARTERIAL BLOOD GAS BASE EXCESS -11.4 meq/l (-2-2); ARTERIAL BLOOD GAS PCO2 51.1 mmHg (35-45); ARTERIAL BLOOD GAS PO2 60.1 mmHg (80-100)
[2018-05-03 10:24] LABS: ALLENS TEST POSITIVE
[2018-05-03 10:27] LABS: ARTERIAL BLOOD GAS pH 7.15 (7.35-7.45)
[2018-05-03] MEDS ORDERED: ALBUTEROL SO4 0.083% IH SOL 2.5 MG/3 ML VIAL.NEB. NEB ONE ×4 (10:30→10:40)
[2018-05-03 10:34] LABS: HEMATOCRIT 37.7 % (32.4-45.2); HEMOGLOBIN 12.4 GM/dL (10.7-15.3); MCH 26.6 pg (25.7-33.7); MEAN CELL VOLUME 80.6 fl (80-96); MEAN PLT VOLUME 12.1 fl (7.5-11.1); PLATELET COUNT 62 K/MM3 (134-434); RBC 4.68 M/mm3 (3.60-5.2); RDW 15.5 % (11.6-15.6)
[2018-05-03 10:49] LABS: INR 1.3 (0.82-1.09); PROTHROMBIN TIME (PATIENT) 14.7 SEC (9.7-13.0)
[2018-05-03 10:51] LABS: WHITE BLOOD COUNT 35.7 K/mm3 (4.0-10.0)
[2018-05-03] MEDS: MUPIROCIN 2% TOPICAL OINTMENT FOR DECOLONIZATION NS SCH ×2 (11:00→22:53)
[2018-05-03 11:11] LABS: ALBUMIN 1.8 g/dl (3.4-5.0); ANION GAP 17 (8-16); BILIRUBIN,TOTAL 5.5 mg/dL (0.2-1.0); BLOOD UREA NITROGEN 47 mg/dL (7-18); CALCIUM 7.6 mg/dL (8.5-10.1); CHLORIDE 113 mmol/L (98-107); CO2 13 mmol/L (21-32); CREATININE 2.1 mg/dL (0.55-1.02); GLUCOSE,RANDOM 125 mg/dL (74-106); SGPT/ALT 102 U/L (12-78); SODIUM 143 mmol/L (136-145); TOT PROT 5.2 g/dl (6.4-8.2)
[2018-05-03 11:18] LABS: ALK PHOS 230 U/L (45-117)
--- NOTE | 2018-05-03 11:23 | PROC ---
Intubation - Intubation Reason for Intubation: Respiratory Failure, Ventilatory Failure Time of Intubation: 10:00 Intubation Method: orotracheal Blade used: Mac Tube Size (cm): 8.0 Tube position @ lip (cm): 20 Tube position confirmed by: CO2 detector, Breath sounds Breath Sounds after Intubation: right greater than left Post Intubation Xray: Yes (R main stem, ETT pulled back 3 cm)
[2018-05-03] MEDS: CHOLESTYRAMINE/SUCROSE 4 GM PACKET PO SCH (11:24)
--- NOTE | 2018-05-03 11:29 | RAPID ---
Physical Examination Vital Signs: Vital Signs Temperature 98.9 F 05/03/18 08:00 Pulse Rate 70 05/03/18 10:00 Respiratory Rate 17 05/03/18 10:00 Blood Pressure 122/110 05/03/18 10:00 O2 Sat by Pulse Oximetry (%) 99 05/03/18 08:28 Findings/Remarks: ROUNDING AND BACKING MACHINE OPERATOR and Code 99 note Pt found to be apneic by ICU BURR PICKER and airway kit was called for. Pulse was lost with wide-complex bradycardia on monitor and code 99 was called overhead whilst beginning ACLS protocol and CPR. Pt was given epinephrine and intubated by ICU team during the code 99 (see official intubation procedure report). Pt regained pulse with sinus rhythm and narrow complex QRS on monitor at a rate of ~70bpm. Post-CPR protocol was initiated and while on optimum ventilator settings pt regained SpO2 only up to 80-85%. EKG, CXR, and labs were ordered stat revealing ST abnormalities in lateral leads alongside opacified L lung (upper and lower lobes). Pt's ETT was also found to be in R mainstem bronchus on CXR and it was withdrawn to the 21 melinda at the lips. Pt's saturation increased to 88% and continues to fluctuate based on positioning from 87% to 92%. Pt's BP post- cardiac arrest was initially elevated around ~198/110's, however slowly decreased down to 98/77 with a MAP of 70. Pt's mental status post-cardiac arrest was nonresponsive with reactive pupils and brainstem reflexes and ice- pack cooling was begun. Rest as per ICU team management. Please see official code sheet. ROUNDING AND BACKING MACHINE OPERATOR note a/p cardiac arrest 2/2 to hypoxia 2/2 acute respiratory failure Pt's LFTs and Tbili also noted to be elevated --Stat RUQ US vs. (once stable) CTAP noncontrast Rpt CXR with changed ETT positioning; most likely opacification from R mainstem intubation and possible mucus plugging in addition F/U stat labs: cbc, cmp, LA, ABG, CRP, TSH/t4/t3 Rest per ICU mgmt Labs: CBC, BMP 05/03/18 10:20
--- NOTE | 2018-05-03 11:41 | PN ---
Progress Note (short form) - Note Progress Note: Pulm/CCM Pt seen and examined in ICU 24HR: -staph aureus bactermia -resp--> cardiac arrest this am -~ 7 min to ROSC, not immediately awake - attempting cooling but febrile -ABD US and CTAP ordered -ekg with diffuse ST depressions post arrest, resolving Vital Signs Temp 98.9 F 05/03/18 08:00 Pulse 70 05/03/18 10:00 Resp 20 05/03/18 11:31 BP 122/110 05/03/18 10:00 Pulse Ox 99 05/03/18 08:28 Intake & Output 05/02/18 05/02/18 05/03/18 11:59 23:59 11:59 Intake Total 3000 Output Total 600 Balance 2400 Weight 68.039 kg 83.688 kg Intake: IV 3000 IV fluids 3000 Output: Urine 600 Straight Cath 600 Other: Voiding Method Bedpan # Unmeasured Voids Straight Cath 1 Bowel Movement No Height 5 ft 1 in 5 ft 1 in Body Mass Index (BMI) 28.3 34.8 Weight Measurement Method Built in [facility] Microbiology 05/02/18 20:10 Blood - Peripheral Venous Blood Culture - Preliminary Pending Organism 05/02/18 20:10 Blood - Peripheral Venous Blood Culture - Preliminary Pending Organism Current Medications Chlorhexidine Gluconate (Hibiclens For Decolonization -) 1 applic TP HS [facility] Cholestyramine Resin (Questran Packet -) 4 gm PO DAILY NABEEL Last Admin: 05/03/18 11:24 Dose: Not Given Clindamycin Phosphate (Cleocin 900 Mg Premix Ivpb -) 900 mg in 50 mls @ 100 mls /hr IVPB Q8H-IV NABEEL; Protocol Last Admin: 05/03/18 12:15 Dose: Not Given Levofloxacin (Levaquin 250 Mg Premixed Ivpb -) 250 mg in 50 mls @ 50 mls/hr IVPB DAILY NABEEL; Protocol Dopamine HCl/Dextrose (Dopamine 400 Mg/D5w -) 400,000 mcg in 250 mls @ 15.692 mls/hr IVPB TITR NABEEL; Protocol Last Admin: 05/03/18 12:00 Dose: 8.25 mcg/kg/min, 25.9 mls/hr Phenylephrine HCl 20,000 mcg/ (Sodium Chloride) 250 mls @ 150 mls/hr IVPB ASDIR NABEEL; Protocol Last Admin: 05/03/18 12:00 Dose: 200 mcg/min, 150 mls/hr Mupirocin (Bactroban Ointment (For Decolonization) -) 1 applic NS BID NABEEL Stop: 05/08/18 09:59 Last Admin: 05/03/18 11:00 Dose: 1 applic Vanco being given now Clinda being stopped. CBCD WBC 35.7 K/mm3 (4.0-10.0) H* 05/03/18 10:20 RBC 4.68 M/mm3 (3.60-5.2) 05/03/18 10:20 Hgb 12.4 GM/dL (10.7-15.3) 05/03/18 10:20 Hct 37.7 % (32.4-45.2) 05/03/18 10:20 MCV 80.6 fl (80-96) 05/03/18 10:20 MCHC 33.0 g/dl (32.0-36.0) 05/03/18 10:20 RDW 15.5 % (11.6-15.6) 05/03/18 10:20 Plt Count 62 K/MM3 (134-434) L 05/03/18 10:20 MPV 12.1 fl (7.5-11.1) H 05/03/18 10:20 CMP Sodium 144 mmol/L (136-145) 05/03/18 07:45 Potassium 3.8 mmol/L (3.5-5.1) 05/03/18 07:45 Chloride 111 mmol/L (98-107) H 05/03/18 07:45 Carbon Dioxide 24 mmol/L (21-32) 05/03/18 07:45 Anion Gap 9 (8-16) 05/03/18 07:45 BUN 48 mg/dL (7-18) H 05/03/18 07:45 Creatinine 1.8 mg/dL (0.55-1.02) H 05/03/18 07:45 Creat Clearance w eGFR 28.33 (>60) 05/03/18 07:45 Random Glucose 67 mg/dL (74-106) L 05/03/18 07:45 Calcium 8.1 mg/dL (8.5-10.1) L 05/03/18 07:45 Total Bilirubin 6.1 mg/dL (0.2-1.0) H 05/03/18 07:45 AST 89 U/L (15-37) H 05/03/18 07:45 ALT 87 U/L (12-78) H 05/03/18 07:45 Alkaline Phosphatase 224 U/L (45-117) H 05/03/18 07:45 Total Protein 5.3 g/dl (6.4-8.2) L 05/03/18 07:45 Albumin 2.0 g/dl (3.4-5.0) L 05/03/18 07:45 CARDIAC ENZYMES Creatine Kinase 143 IU/L (26-192) 05/02/18 20:45 Troponin I < 0.02 ng/ml (0.00-0.05) 05/02/18 20:45 Hepatic Panel Total Bilirubin 6.1 mg/dL (0.2-1.0) H 05/03/18 07:45 AST 89 U/L (15-37) H 05/03/18 07:45 ALT 87 U/L (12-78) H 05/03/18 07:45 Alkaline Phosphatase 224 U/L (45-117) H 05/03/18 07:45 Albumin 2.0 g/dl (3.4-5.0) L 05/03/18 07:45 PE: Gen toxic appearing woman, intubated sedated HEENT: orally intubated, PERRL 3mm sluggish CV: tachy reg no mr//g appreciated ABD; Soft, ND, + BS, obese EXT; cool, weak peripheral pulses, trace edema Neuro: withdrawals bilaterally, no purposeful, + cough, corneal intact A/ 62 y/o woman with Staph bacteria of unclear source c/b MSOF (shock liver, resp failure, cardiac arrest) now intubated on moderate vasopressor support P/ -full vent support, LTV strategies -vasopressor for MAP 60-65, trend lactate -attempt to obtain Temp 36C, tylenol, cooling blanket, normothermia goal at min -directed abx towards staph, cont localization exams as able -repeat bcxl in am -serial trop -GI consulted for LFTS, Abd US with normal CBD, no obstruction, fatty liver -daily awakening -ID following apprec recs -Neuro to see -DVT and GI prophy [facility]
--- NOTE | 2018-05-03 11:46 | CONSULT ---
Consult Consult Specialty:: Endocrinology Referred by:: David Black MD Reason for Consultation:: Abnormal TFT - History of Present Illness Chief Complaint: AMS History of Present Illness: This is a 62 y/o woman who presented to ER with worsening mental status according to her roommate. In the ER pt was noted to be febrile, confused, agitated and was pulling lines, and desaturated to 80s-low 90s on RA, placed on a venti-mask. She was started on levaquin and IVF bolus x1 liter. Labs were remarkable for eleavted LFTs, lact 2.4, WBC 25, creat 2.3, k 3.1. Admitted to ICU for further management of severe sepsis and hypoxia. Today morning she was intubated for respiratory failure. Pt found to have abnormal TFT and referred for evaluation. 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) ...: No - Alcohol/Substance Use Hx Alcohol Use: No - Smoking History Smoking history: Former smoker Have you smoked in the past 12 months: No Home Medications - Allergies Allergies/Adverse Reactions: Allergies Allergy/AdvReac Type Severity Reaction Status Date / Time Penicillins Allergy Verified 05/02/18 19:45 - Home Medications Home Medications: Ambulatory Orders Atenolol/Chlorthalidone [Atenolol-Chlorthalidone 100-25] 1 each PO DAILY Cholecalciferol (Vitamin D3) [Vitamin D3] 5,000 unit PO DAILY 05/02/18 Garlic 1,000 mg PO DAILY 05/02/18 Review of Systems Unable to obtain ROS, reason: Intubated Physical Exam Vital Signs: Vital Signs Temperature 98.9 F 05/03/18 08:00 Pulse Rate 70 05/03/18 10:00 Respiratory Rate 20 05/03/18 11:31 Blood Pressure 122/110 05/03/18 10:00 O2 Sat by Pulse Oximetry (%) 99 05/03/18 08:28 Constitutional: Yes: Other (Intubated) Eyes: Yes: Conjunctiva Clear HENT: Yes: Atraumatic, Normocephalic Neck: Yes: Supple, Trachea Midline Cardiovascular: Yes: Regular Rate and Rhythm Respiratory: Yes: Regular, CTA Bilaterally Gastrointestinal: Yes: Normal Bowel Sounds, Soft Extremities: Yes: WNL Edema: No Neurological: Yes: Other (Intubated) Labs: CBC, BMP 05/03/18 10:20 Imaging - Results Chest X-ray: Report Reviewed Cat Scan: Report Reviewed Problem List - Problems (1) Altered mental status Code(s): R41.82 - ALTERED MENTAL STATUS, UNSPECIFIED (2) Sepsis Code(s): A41.9 - SEPSIS, UNSPECIFIED ORGANISM Assessment/Plan A/P: Respiriatory Failure s/p Intubation Sepsis JUAN PABLO Abnormal TFT: Sick Euthyroid vs Subclinical Hyperthyroidism Mild nonspecific enlargement of left Adrenal on CT Scan TSH 0.14 FT4 and T3 pending Test for TPO, TSI Ventilatory support IV Abx Pressure support Electrolyte replacement as necessary. Will F/u
[2018-05-03 11:51] LABS: SGOT/AST 142 U/L (15-37)
[2018-05-03 12:01] LABS: ARTERIAL BLD GAS O2 SATURATION 98.7 % (90-98.9); ARTERIAL BLOOD GAS BASE EXCESS -5.3 meq/l (-2-2); ARTERIAL BLOOD GAS PCO2 35.1 mmHg (35-45); ARTERIAL BLOOD GAS pH 7.36 (7.35-7.45)
--- NOTE | 2018-05-03 12:15 | CON.CARD ---
Consult Consult Specialty:: Cardiology Referred by:: Dr Zarco Reason for Consultation:: cardiac arrest - History of Present Illness Chief Complaint: cardiac arrest History of Present Illness: She is a 62 year old woman unclear history of htn admitted with changing mental status, found with sepsis, elevated bilirubin and staph bacteremia. Now s/p respiratory then cardiac arrest with ROSC after 7 minutes per ICU. Now intubated and nonresponsive on ventilator. Noted with ECG changes. 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) ...: No - Alcohol/Substance Use Hx Alcohol Use: No - Smoking History Smoking history: Former smoker Have you smoked in the past 12 months: No Home Medications - Allergies Allergies/Adverse Reactions: Allergies Allergy/AdvReac Type Severity Reaction Status Date / Time Penicillins Allergy Verified 05/02/18 19:45 - Home Medications Home Medications: Ambulatory Orders Atenolol/Chlorthalidone [Atenolol-Chlorthalidone 100-25] 1 each PO DAILY Cholecalciferol (Vitamin D3) [Vitamin D3] 5,000 unit PO DAILY 05/02/18 Garlic 1,000 mg PO DAILY 05/02/18 Family Disease History - Family Disease History Family History: Unable to Obtain Review of Systems Unable to obtain ROS, reason: clinical condition Vital Signs: Vital Signs Temperature 98.9 F 05/03/18 08:00 Pulse Rate 70 05/03/18 10:00 Respiratory Rate 20 05/03/18 11:31 Blood Pressure 122/110 05/03/18 10:00 O2 Sat by Pulse Oximetry (%) 99 05/03/18 08:28 Constitutional: Yes: Well Nourished Eyes: Yes: Sclera Icterus HENT: Yes: Atraumatic, Normocephalic Neck: Yes: Trachea Midline Respiratory: Yes: Mechanically Ventilated, Rhonchi Gastrointestinal: Yes: Soft, Abdomen, Obese Renal/: Yes: WNL Cardiovascular: Yes: Regular Rate and Rhythm JVD: No Carotid Bruit: No PMI: Non-Displaced Heart Sounds: Yes: S1, S2 Extremities: Yes: WNL Edema: No Peripheral Pulses WNL: Yes - Other Data Labs, Other Data: CBC, BMP 05/03/18 10:20 05/03/18 10:20 INR, PTT INR 1.30 (0.82-1.09) H 05/03/18 10:20 Troponin, BNP 05/02/18 05/02/18 19:59 20:45 Troponin I Cancelled < 0.02 Troponin, BNP 05/02/18 05/02/18 19:59 20:45 Troponin I Cancelled < 0.02 Imaging - Results Chest X-ray: Report Reviewed (ett, lt base atalectasis) EKG: Report Reviewed (nsr diffuse st depressions) Assessment/Plan Cardiac arrest due to sepsis with shock and respiratory failure with lactic acidosis, staph bacteremia. Doubt primary cardiac event. She is not a candidate for IV heparin if cardiac markers increase due to coagulopathy and thrombocytopenia. Vent management, pressors per ICU team. Abx per ID. Echo ordered. Assess EF and valves for vegitations from staph bacteremia. Prognosis is very poor.
[2018-05-03] MEDS ORDERED: PHENYLEPHRINE HCL 10 MG/1 ML SINGLE DOSE VIAL ONE ×2 (12:23→16:59)
[2018-05-03] MEDS ORDERED: SODIUM CHLORIDE 0.9% 500 ML INFUS.BAG IV ONE (12:37)
[2018-05-03] MEDS ORDERED: MIDAZOLAM HCL 2 MG/2 ML SINGLE DOSE VIAL IVPUSH ONE (12:40)
[2018-05-03] MEDS ORDERED: MIDAZOLAM HCL 5 MG/1 ML Single Dose Vial ONE (12:57)
--- NOTE | 2018-05-03 13:00 | PROC ---
Central Line Insertion Indication: Vasopressor Risks and Benefits Explained: No (emergent) Consent on Chart: No (emergent) Central Line: Triple Lumen Catheter Anesthesia: 1% Lidocaine Sterile Technique: Yes Ultrasound Guided Assistance: No Position: Left Subclavian Post Insertion: Yes: Bilateral Breath Sounds Sterile Dressing Applied: Yes
[2018-05-03] MEDS ORDERED: DOPAMINE 400 MG/D5W - 400,000 MCG/250 ML INFUS.BAG IVPB SCH (15:00)
[2018-05-03] MEDS ORDERED: PHENYLEPHRINE HCL 20,000 MCG in SODIUM CHLORIDE 248 ML IVPB SCH (15:00)
--- NOTE | 2018-05-03 17:12 | PN ---
Progress Note (short form) - Note Progress Note: GI CONSULT PLEASE SEE COMPLETE GI CONSULT DICTATION FINDINGS D/W H.O. EARLIER TODAY SUSPECT LFT ELEVATION DUE TO COMBINATION OF SEPSIS AND ISCHEMIC HEPATOPATHY MANNER OF PRESENTATION, PRIOR HX, AND FINDING OF STAPH. MAKES OCCULT BILIARY DISEASE UNLIKELY AGREE WITH F/U OF LFT'S/ SONO OF RUQ SUSPECT ONCE THIS OVERWHELMING SEPSIS (AG >17) RESOLVES, THE LFT'S WILL NORMALIZE THANKSBRAD MD
[2018-05-03] MEDS ORDERED: ACETAMINOPHEN 1000 MG/100 ML VIAL (NON FORMULARY) IVPB ONE (17:45)
--- NOTE | 2018-05-03 18:55 | CONSULT ---
Consult - text type - Consultation Consultation Note: NEUROLOGY CONSULTATION is greatly appreciated: This 62 yo woman with unknown medical history was brought to ED by her roommate after 3 days of back pain, decreased appetite, nausea, vomiting and the development of confusion. In ED: WBC=25 K. Cr=2.3 mg%, CT of head (reviewed): s/p left frontal craniotomy with encephalomalacia of the left cingulate gyrus and corpus collosum CT of chest: RLL pneumonia, right pleural effusion, mediastinal lymphadenopathy , fatty liver, splenomegally. Patient became progressively hypoxemic and suffered cardiorespiratory arrest this AM. CPR estimated at approx 8 mins. Now intubated. Ventilated. Dr. Meier's note read and appreciated. LP dangerous due to dropping platelet counts. ID will cover with antibiotics appropriate for meningitis. MISBAH: Intubated. Obese. Neck supple. No bruits. Kernig's neg. Febrile on cooling blanket but hands and feet ice cold. NEURO: Not on sedatives Grimaces to sternal pressure. + shallow spontaneous respirations. Spontaneous blinking. Pupils reactive with full EOM's to doll's head Corneals +/+ No limb mov'ts. Areflexic. Plantars silent No withdrawal to pinch. IMP: Non-focal exam with severe, B/L cerebral dysfunction. C/W anoxic encephalopathy s/p cardiorespiratory arrest due to sepsis, hypoxemia. Cannot exclude meningitis but events more c/w a primarily systemic infection/sepsis. ID will cover for CASTING MACHINE CONTROL BOARD OPERATOR infection S/P Brain surgery. 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 SUGGEST: Continue antibiotics with CASTING MACHINE CONTROL BOARD OPERATOR penetration and broad coverage for meningitis. Continue supportive care. Repeat CT of head in 24-36 hrs. Thank you very much, Nate Valerio MD
[2018-05-03] MEDS ORDERED: NOREPINEPHRINE BITARTRATE 4 MG/4 ML ML IV ONE (21:04)
[2018-05-03 21:24] LABS: HEMATOCRIT 38.2 % (32.4-45.2); HEMOGLOBIN 12.8 GM/dL (10.7-15.3); MCH 26.2 pg (25.7-33.7); MCHC 33.5 g/dl (32.0-36.0); MEAN CELL VOLUME 78.2 fl (80-96); MEAN PLT VOLUME 11.6 fl (7.5-11.1); PLATELET COUNT 62 K/MM3 (134-434); RBC 4.89 M/mm3 (3.60-5.2); RDW 15.4 % (11.6-15.6)
[2018-05-03 21:50] LABS: ALLENS TEST POSITIVE
[2018-05-03 21:51] LABS: ARTERIAL BLD GAS O2 SATURATION 98.2 % (90-98.9); ARTERIAL BLOOD GAS PCO2 39.3 mmHg (35-45); ARTERIAL BLOOD GAS pH 7.43 (7.35-7.45)
[2018-05-03 22:00] LABS: ALBUMIN 1.8 g/dl (3.4-5.0); ANION GAP 10 (8-16); BLOOD UREA NITROGEN 52 mg/dL (7-18); CALCIUM 7.5 mg/dL (8.5-10.1); CHLORIDE 113 mmol/L (98-107); CO2 21 mmol/L (21-32); GLUCOSE,RANDOM 119 mg/dL (74-106); POTASSIUM 3.7 mmol/L (3.5-5.1); SGOT/AST 161 U/L (15-37); SGPT/ALT 112 U/L (12-78); SODIUM 144 mmol/L (136-145)
[2018-05-03] MEDS ORDERED: CHLORHEXIDINE GLUCONATE 4% CLEANSER FOR DECOLONIZATION TP SCH (22:00)
[2018-05-03] MEDS ORDERED: NOREPINEPHRINE BITARTRATE 8,000 MCG in DEXTROSE 5%-WATER - 492 ML IV SCH (22:00)
[2018-05-03 22:01] LABS: ALK PHOS 227 U/L (45-117); BILIRUBIN,TOTAL 6.9 mg/dL (0.2-1.0); TOT PROT 5.2 g/dl (6.4-8.2)
[2018-05-04] MEDS ORDERED: ACETAMINOPHEN 325 MG TABLET (FP) ONE (02:43)
[2018-05-04] MEDS: CLINDAMYCIN 900 MG PREMIX IVPB 900 MG/50 ML BAG IVPB SCH ×2 (02:52→09:38)
[2018-05-04] MEDS ORDERED: ACETAMINOPHEN 1000 MG/100 ML VIAL (NON FORMULARY) IVPB PRN (03:21)
[2018-05-04] MEDS ORDERED: DOPAMINE 400 MG/D5W - 400,000 MCG/250 ML INFUS.BAG IVPB ONE (05:19)
[2018-05-04] MEDS ORDERED: NOREPINEPHRINE BITARTRATE 4 MG/4 ML ML IV ONE (05:19)
[2018-05-04] MEDS ORDERED: LACTATED RINGERS SOLUTION 1000 ML INFUS.BAG IV ONE (05:49)
[2018-05-04] MEDS ORDERED: VANCOMYCIN 750 MG in DEXTROSE 5%-WATER - 250 ML IVPB ONE (05:55)
[2018-05-04] MEDS ORDERED: VASOPRESSIN 20 UNITS/ML VIAL IV ONE (05:57)
[2018-05-04] MEDS ORDERED: VASOPRESSIN 50 UNITS in SODIUM CHLORIDE 97.5 ML IVPB SCH (06:00)
[2018-05-04 06:59] LABS: HEMATOCRIT 37.7 % (32.4-45.2); HEMOGLOBIN 12.8 GM/dL (10.7-15.3); MCH 26.6 pg (25.7-33.7); MEAN CELL VOLUME 78.2 fl (80-96); MEAN PLT VOLUME 12.7 fl (7.5-11.1); PLATELET COUNT 53 K/MM3 (134-434); RBC 4.81 M/mm3 (3.60-5.2); RDW 15.1 % (11.6-15.6)
[2018-05-04 07:16] LABS: INR 1.27 (0.82-1.09); PROTHROMBIN TIME (PATIENT) 14.3 SEC (9.7-13.0)
[2018-05-04 07:17] LABS: WHITE BLOOD COUNT 41.6 K/mm3 (4.0-10.0)
[2018-05-04 07:23] LABS: ALBUMIN 1.6 g/dl (3.4-5.0); AMYLASE 26 U/L (25-115); ANION GAP 10 (8-16); BILIRUBIN,DIRECT 6.4 mg/dL (0.0-0.2); BLOOD UREA NITROGEN 56 mg/dL (7-18); CHLORIDE 111 mmol/L (98-107); CO2 20 mmol/L (21-32); GLUCOSE,RANDOM 159 mg/dL (74-106); MAGNESIUM 2.8 mg/dL (1.8-2.4); PHOSPHOROUS 3.7 mg/dL (2.5-4.9); POTASSIUM 3.6 mmol/L (3.5-5.1); SGOT/AST 123 U/L (15-37); SODIUM 141 mmol/L (136-145)
[2018-05-04] MEDS ORDERED: PT OWN MED DRAWER 7, Y5N ONE (07:24)
--- NOTE | 2018-05-04 07:26 | CONS ---
DATE OF CONSULTATION: 05/03/2018 GASTROENTEROLOGY CONSULTATION REASON FOR CONSULTATION: I was asked by Dr. Gabriella Mccray to evaluate the patient for jaundice. HISTORY OF PRESENT ILLNESS: The patient is a 62-year-old female who cannot elicit any medical history at this time, as she is currently intubated, on life support. She was brought in by EMS yesterday with complaint of dizziness that began the night before. She felt extremely dizzy when she awakened, and she had an episode of nausea non-bloody vomitus a day or two prior. She had difficulty keeping down food, and she basically proceeded to the hospital, where at that time she was noted to have fever, confusion, severe dehydration, a white count of 26,000, complaining of back pain. She had a poor appetite, and she was noted to have staph bacteremia on blood cultures that were taken, and she was started on antibiotics. Apparently, as I said, the patient cannot give a history. Via the medical team, I learned the patient then became quite ill, hypotensive, and she had a cardiac arrest and was resuscitated. The patient has been followed now by the ICU team. She was noted to be apneic and she had a wide-complex bradycardia. A code 99 was called. This was on May 03 at 11 a.m. She had a rapid response. She regained her pulse. She had CPR protocol. Labs were obtained. She was resuscitated. She has been seen by Cardiology. She now has a white count of 35,000 and significant thrombocytopenia. She was advised not to be anticoagulated, and we are called because her liver enzymes have risen. In speaking with the patient's family, there is no reported history of any liver, biliary or pancreatic disease. There is no known history of hepatitis. The patient was not a drinker or smoker and did not use drugs. The patient was currently working. The patient is single, anastomosis she really has no medical history, according to the family. She did have a history of some hypertension but no history of any heart disease, no prior CVA and no diabetes. SHE IS NOTED TO BE ALLERGIC TO PENICILLIN. 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 Family history is unobtainable. The patient has never had GI issues that they are aware of, as well. Currently, as noted, in the hospital the patient is getting Levaquin, mupirocin, dopamine, as well as IV fluid. PHYSICAL EXAMINATION: Vital Signs: Pulse 75. Her blood pressure is now 115/60. Her vital signs are stable, and she has been afebrile. General: She is not responsive. She is not communicative. She is on a ventilator, intubated, with an ET tube. Neck: Very thick. Heart: Regular. Abdomen: Massively obese. Bowel sounds are heard. It is not hard. It is not tense. There are no masses, rebound or guarding that I can assess. It appears that Infectious Disease has been following the patient and there has been ASSESSMENT: Currently it is my impression that the patient is a 62-year-old obese woman with hypertension, without prior medical history, who comes with fever, change in mental status, and was noted to have significant dizziness and an episode of vomiting. She is noted to have significant elevation of white count. She is clearly septic, with significant lactic acidosis. It is appears that she was in shock. She had a cardiac arrest and hypotension. In view of all the findings, I would suspect that the most likely etiology for her elevated liver enzymes is a combination of ischemic hepatopathy, shock liver and underlying LFT elevation due to sepsis. At this time, I think that cholangitis is much less likely, based on the finding that she has grown out staph and the fact that she did never really complain of significant abdominal or right upper quadrant pain. She has no history of biliary disease. I would certainly recommend a routine sonogram of the right upper quadrant to assess and, if needed, a CAT scan or MRCP, if there is no other source found. However, at this time the patient is clearly significantly sick, nearly moribund, with a very poor prognosis. I suspect that as the patient's medical condition improves, if she is able to reverse this huge insult, then I strongly suspect her liver enzymes, bilirubin and alkaline phosphatase will normalize over time. If it appears that the findings are suspect of choledocholithiasis or cholangitis, then a more aggressive biliary intervention can be obtained. We will continue to be available to aid in the management of this patient. For now, I would strongly recommend following up the LFTs, direct bilirubin, total bilirubin as well as obtaining a sonogram of the right upper quadrant. The findings were discussed with the medical team. MARY DIALLO M.D. FROILAN/[id number]
[2018-05-04 07:28] LABS: ALK PHOS 213 U/L (45-117); BILIRUBIN,TOTAL 7.2 mg/dL (0.2-1.0); SGPT/ALT 102 U/L (12-78); TOT PROT 5.1 g/dl (6.4-8.2)
[2018-05-04 08:31] VITALS: TEMP 102.5
--- NOTE | 2018-05-04 09:10 | PN ---
Progress Note (short form) - Note Progress Note: Pulm/CCM Pt seen and examined in ICU 24HR: -mssa in blood, repeat sent, on Vanc, will change to oxacillin -vasopressors down trending -awake, tracking, not moving ext, has cough and resp drive -CT Cspine pending Vital Signs Temp 102.5 F H 05/04/18 08:00 Pulse 71 05/04/18 08:00 Resp 20 05/04/18 08:00 BP 131/82 05/04/18 08:00 Pulse Ox 100 05/03/18 21:00 Intake & Output 05/03/18 05/03/18 05/04/18 11:59 23:59 11:59 Intake Total 3000 2190 1655 Output Total 600 700 250 Balance 2400 1490 1405 Weight 83.688 kg Intake: IV 3000 1761 505 DOPAMINE 400 MG/D5W - 400 269 105 ,000 mcg In 250 ml @ 5 MCG/KG/MIN 15.692 mls/hr IVPB TITR NABEEL Rx#: [id number] IV fluids 3000 603 Levophed - 8,000 Mcg In 225 392 D5w - 492 ml @ 5 MCG/MIN 18.75 mls/hr IV TITR NABEEL Rx#:[id number] Luis-Synephrine - 20,000 664 Mcg In Normal Saline - 248 ml @ 200 MCG/MIN 150 mls/hr IVPB ASDIR NABEEL Rx# :[id number] Pitressin - 50 Units In 8 Normal Saline - 97.5 ml @ 2 UNITS/HR 4 mls/hr IVPB ASDIR NABEEL Rx#: [id number] IVPB 429 1150 Output: Urine 600 700 250 Franklin 700 250 Straight Cath 600 Other: Voiding Method Bedpan Indwelling Catheter # Unmeasured Voids Straight Cath 1 Bowel Movement No No Height 5 ft 1 in Body Mass Index (BMI) 34.8 Weight Measurement Method Built in [facility] Microbiology 05/02/18 20:10 Blood Culture - Preliminary Blood - Peripheral Venous Presumptive Mssa (Pbp2a Neg) 05/02/18 20:10 Blood Culture - Preliminary Blood - Peripheral Venous Presumptive Mssa (Pbp2a Neg) Active Medications Acetaminophen (Ofirmev Injection -) 1,000 mg IVPB Q6H PRN PRN Reason: TEMP > 101* Chlorhexidine Gluconate (Hibiclens For Decolonization -) 1 applic TP HS NABEEL Last Admin: 05/03/18 22:53 Dose: 1 applic Cholestyramine Resin (Questran Packet -) 4 gm PO DAILY NABEEL Last Admin: 05/03/18 11:24 Dose: Not Given Clindamycin Phosphate (Cleocin 900 Mg Premix Ivpb -) 900 mg in 50 mls @ 100 mls /hr IVPB Q8H-IV NABEEL; Protocol Last Admin: 05/04/18 02:52 Dose: 100 mls/hr Levofloxacin (Levaquin 250 Mg Premixed Ivpb -) 250 mg in 50 mls @ 50 mls/hr IVPB DAILY NABEEL; Protocol Dopamine HCl/Dextrose (Dopamine 400 Mg/D5w -) 400,000 mcg in 250 mls @ 15.692 mls/hr IVPB TITR NABEEL; Protocol Last Titration: 05/03/18 19:17 Dose: 7.5 mcg/kg/min, 23.537 mls/hr Norepinephrine Bitartrate 8, (000 mcg/ Dextrose) 500 mls @ 18.75 mls/hr IV TITR NABEEL; Protocol Last Admin: 05/03/18 21:58 Dose: 20 mcg/min, 75 mls/hr Vasopressin 50 units/ Sodium (Chloride) 100 mls @ 4 mls/hr IVPB ASDIR NABEEL; Protocol Last Admin: 05/04/18 06:00 Dose: 2 units/hr, 4 mls/hr Mupirocin (Bactroban Ointment (For Decolonization) -) 1 applic NS BID NABEEL Stop: 05/08/18 09:59 Last Admin: 05/03/18 22:53 Dose: 1 applic Vanco being given now Clinda being stopped. CBCD WBC 41.6 K/mm3 (4.0-10.0) H* 05/04/18 05:00 RBC 4.81 M/mm3 (3.60-5.2) 05/04/18 05:00 Hgb 12.8 GM/dL (10.7-15.3) 05/04/18 05:00 Hct 37.7 % (32.4-45.2) 05/04/18 05:00 MCV 78.2 fl (80-96) L 05/04/18 05:00 MCHC 34.0 g/dl (32.0-36.0) 05/04/18 05:00 RDW 15.1 % (11.6-15.6) 05/04/18 05:00 Plt Count 53 K/MM3 (134-434) L 05/04/18 05:00 MPV 12.7 fl (7.5-11.1) H 05/04/18 05:00 CMP Sodium 141 mmol/L (136-145) 05/04/18 05:00 Potassium 3.6 mmol/L (3.5-5.1) 05/04/18 05:00 Chloride 111 mmol/L (98-107) H 05/04/18 05:00 Carbon Dioxide 20 mmol/L (21-32) L 05/04/18 05:00 Anion Gap 10 (8-16) 05/04/18 05:00 BUN 56 mg/dL (7-18) H 05/04/18 05:00 Creatinine 2.0 mg/dL (0.55-1.02) H 05/04/18 05:00 Creat Clearance w eGFR 25.08 (>60) 05/03/18 20:50 Calcium 7.0 mg/dL (8.5-10.1) L 05/04/18 05:00 Total Bilirubin 7.2 mg/dL (0.2-1.0) H 05/04/18 05:00 AST 123 U/L (15-37) H 05/04/18 05:00 ALT 102 U/L (12-78) H 05/04/18 05:00 Alkaline Phosphatase 213 U/L (45-117) H 05/04/18 05:00 Total Protein 5.1 g/dl (6.4-8.2) L 05/04/18 05:00 Albumin 1.6 g/dl (3.4-5.0) L 05/04/18 05:00 PE: Gen toxic appearing woman, intubated ,tracking HEENT: orally intubated, PERRL 3mm sluggish CV: tachy reg no mr//g appreciated ABD; Soft, ND, + BS, obese EXT; cool, weak peripheral pulses, increased peripheral edema Neuro: not moving ext to noxious stimuli, A/ 62 y/o woman with Staph bacteria of unclear source c/b MSOF (shock liver, resp failure, cardiac arrest) now intubated on moderate vasopressor support P/ -full vent support, LTV strategies -vasopressor for MAP 60-65, trend lactate -attempt to obtain Temp 36C, tylenol, cooling blanket, normothermia goal at min -directed abx towards staph, oxacillin -repeat bcxl daily until clear -unable to get LP due to thrombocytopeina, coagulopathy -serial trop, EKG greatly improved -GI consulted for LFTS, Abd US with normal CBD, no obstruction, fatty liver -daily awakening -ID following apprec recs -Neuro to see, CT spine today -DVT and GI prophedi Vides ACNP [id number] [id number]
[2018-05-04] MEDS: CHOLESTYRAMINE/SUCROSE 4 GM PACKET PO SCH (09:39)
[2018-05-04] MEDS: MUPIROCIN 2% TOPICAL OINTMENT FOR DECOLONIZATION NS SCH (09:39)
--- NOTE | 2018-05-04 11:03 | PN ---
Progress Note, Physician History of Present Illness: Events noted - Current Medication List Current Medications: Active Medications Acetaminophen (Ofirmev Injection -) 1,000 mg IVPB Q6H PRN PRN Reason: TEMP > 101* Chlorhexidine Gluconate (Hibiclens For Decolonization -) 1 applic TP HS NABEEL Last Admin: 05/03/18 22:53 Dose: 1 applic Cholestyramine Resin (Questran Packet -) 4 gm PO DAILY NABEEL Last Admin: 05/04/18 09:39 Dose: Not Given Clindamycin Phosphate (Cleocin 900 Mg Premix Ivpb -) 900 mg in 50 mls @ 100 mls /hr IVPB Q8H-IV NABEEL; Protocol Last Admin: 05/04/18 09:38 Dose: 100 mls/hr Levofloxacin (Levaquin 250 Mg Premixed Ivpb -) 250 mg in 50 mls @ 50 mls/hr IVPB DAILY NABEEL; Protocol Last Admin: 05/04/18 09:43 Dose: 50 mls/hr Dopamine HCl/Dextrose (Dopamine 400 Mg/D5w -) 400,000 mcg in 250 mls @ 15.692 mls/hr IVPB TITR NABEEL; Protocol Last Titration: 05/03/18 19:17 Dose: 7.5 mcg/kg/min, 23.537 mls/hr Norepinephrine Bitartrate 8, (000 mcg/ Dextrose) 500 mls @ 18.75 mls/hr IV TITR NABEEL; Protocol Last Admin: 05/03/18 21:58 Dose: 20 mcg/min, 75 mls/hr Vasopressin 50 units/ Sodium (Chloride) 100 mls @ 4 mls/hr IVPB ASDIR NABEEL; Protocol Last Admin: 05/04/18 06:00 Dose: 2 units/hr, 4 mls/hr Mupirocin (Bactroban Ointment (For Decolonization) -) 1 applic NS BID NABEEL Stop: 05/08/18 09:59 Last Admin: 05/04/18 09:39 Dose: 1 applic - Objective Vital Signs: Vital Signs Temperature 102.5 F H 05/04/18 08:00 Pulse Rate 71 05/04/18 08:00 Respiratory Rate 20 05/04/18 10:51 Blood Pressure 131/82 05/04/18 08:00 O2 Sat by Pulse Oximetry (%) 100 05/03/18 21:00 Cardiovascular: Yes: S1, S2 Respiratory: Yes: Mechanically Ventilated Gastrointestinal: Yes: Normal Bowel Sounds, Soft Neurological: Yes: Weakness, Other (unable to move extremeties open eyes) Labs: CBC, BMP 05/04/18 05:00 05/04/18 05:00 INR, PTT INR 1.27 (0.82-1.09) H 05/04/18 05:00 Problem List - Problems (1) Sepsis Assessment/Plan: -On IV Abx per ID CT of C-spine -CXR: RLL infiltrate -CT chest: RLL infiltrate w/ edema, nonspecific LN enlargement, hepatic steatosis -CT head: s/p craniotomy, nonfocal thickening of midline -CT T-spine/L-spine: L4-5, L5-S1 b/l degenerative changes -BCx, UCx pending -on NS bolus -SCDs -Admit to ICU Code(s): A41.9 - SEPSIS, UNSPECIFIED ORGANISM (2) Altered mental status Assessment/Plan: -now with extremity weakness -Neuro -Ct of C-Spine Code(s): R41.82 - ALTERED MENTAL STATUS, UNSPECIFIED (3) Dehydration Code(s): E86.0 - DEHYDRATION (4) Pneumonia Assessment/Plan: -CT NOTED -FOLLOW CXR -PULM/CARDIO Code(s): J18.9 - PNEUMONIA, UNSPECIFIED ORGANISM (5) Cardiopulmonary arrest Assessment/Plan: -MOnitor Labs Cardio/Neuro Code(s): I46.9 - CARDIAC ARREST, CAUSE UNSPECIFIED (6) Troponin level elevated Assessment/Plan: -monitor -cardio Code(s): R74.8 - ABNORMAL LEVELS OF OTHER SERUM ENZYMES
--- NOTE | 2018-05-04 12:47 | PN ---
Progress Note (short form) - Note Progress Note: Progress Note: Briefly Ms Gordon is a 62 y/o woman with remote hx of crainiotomy for "tumor" in 2000 without apparent recurrence or significant deficit. Pt also on antiHtn ( atenolol) but no other significant medical hx. 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 She had been c/o increase back pain, with associated sick prodrome of n/v, anorexia, vomiting x 1, and malaise. Pt did not return phone call from family, friend was sent to apt to evaluate and found pt altered. She was sent to ED where pt was confused but conversant, was febrile, toxic appearing, CARDENAS x4. She was agitated and was pulling of O2 and IV lines. Per She was noted to have multisystem organ dysfunction with Cr 2.3, Tbili 7, WBC 25K. She had small PNA on CXR, had an unconcerning EKG. She was sent for T and L spine CT out of concern for spinal abcess, scan was w/o contrast due to oliguric renal failure. Images with degenerative changes but no visible source (again w/o contrast), subsequent non con C-spine imaging also with degenerative changes and spinal stenosis but no fx or evidence of cord compression. CT head showed evidence of the crainotomy but no acute pathology or bleed. Pt was transferred to ICU overnight where she was diffusely weak, toxic appearing, and with moderate resp distress. She was placed on NIVPPV. Pt was seen in am by ID where she was awake, confused, but with stable VS, and good saturations. Later in AM she was noted by this author to be apneic on NIV and becoming bradycardic---> she promptly arrested. Underwent
--- NOTE | 2018-05-04 13:13 | PN ---
Progress Note, Physician History of Present Illness: Awake. Opens eyes to verbal stimulus Flaccid paralysis reported this am Remains febrile with markedly elevated WBC BC MSSA - Current Medication List Current Medications: Active Medications Acetaminophen (Ofirmev Injection -) 1,000 mg IVPB Q6H PRN PRN Reason: TEMP > 101* Last Admin: 05/04/18 11:59 Dose: 1,000 mg Chlorhexidine Gluconate (Hibiclens For Decolonization -) 1 applic TP HS NABEEL Last Admin: 05/03/18 22:53 Dose: 1 applic Cholestyramine Resin (Questran Packet -) 4 gm PO DAILY NABEEL Last Admin: 05/04/18 09:39 Dose: Not Given Clindamycin Phosphate (Cleocin 900 Mg Premix Ivpb -) 900 mg in 50 mls @ 100 mls /hr IVPB Q8H-IV NABEEL; Protocol Last Admin: 05/04/18 09:38 Dose: 100 mls/hr Levofloxacin (Levaquin 250 Mg Premixed Ivpb -) 250 mg in 50 mls @ 50 mls/hr IVPB DAILY NABEEL; Protocol Last Admin: 05/04/18 09:43 Dose: 50 mls/hr Dopamine HCl/Dextrose (Dopamine 400 Mg/D5w -) 400,000 mcg in 250 mls @ 15.692 mls/hr IVPB TITR NABEEL; Protocol Last Titration: 05/03/18 19:17 Dose: 7.5 mcg/kg/min, 23.537 mls/hr Norepinephrine Bitartrate 8, (000 mcg/ Dextrose) 500 mls @ 18.75 mls/hr IV TITR NABEEL; Protocol Last Admin: 05/03/18 21:58 Dose: 20 mcg/min, 75 mls/hr Vasopressin 50 units/ Sodium (Chloride) 100 mls @ 4 mls/hr IVPB ASDIR NABEEL; Protocol Last Admin: 05/04/18 06:00 Dose: 2 units/hr, 4 mls/hr Mupirocin (Bactroban Ointment (For Decolonization) -) 1 applic NS BID NABEEL Stop: 05/08/18 09:59 Last Admin: 05/04/18 09:39 Dose: 1 applic - Objective Vital Signs: Vital Signs Temperature 102.5 F H 05/04/18 08:00 Pulse Rate 63 05/04/18 08:25 Respiratory Rate 20 05/04/18 10:51 Blood Pressure 131/82 05/04/18 08:00 O2 Sat by Pulse Oximetry (%) 98 05/04/18 08:25 Constitutional: Yes: Obese Cardiovascular: Yes: Regular Rate and Rhythm, S1, S2 Respiratory: Yes: Mechanically Ventilated Gastrointestinal: Yes: Normal Bowel Sounds, Soft, Abdomen, Obese. No: Tenderness Edema: Yes Labs: CBC, BMP 05/04/18 05:00 05/04/18 05:00 INR, PTT INR 1.27 (0.82-1.09) H 05/04/18 05:00 Assessment/Plan MSSA bacteremia R/O endocarditis S/P Cardiopulmonary arrest Marked leukocytosis Thrombocytopenia Azotemia PCN allergy Substitute cefazolin 2gm q8h Echocardiogram Neurology follow up Imaging of spine
--- NOTE | 2018-05-04 13:13 | PN ---
Progress Note, Physician Chief Complaint: Alert on ventilator, plegic tele neg History of Present Illness: She is a 62 year old woman unclear history of htn admitted with changing mental status, found with sepsis, elevated bilirubin and staph bacteremia. Now s/p respiratory then cardiac arrest with ROSC after 7 minutes per ICU. Now intubated and nonresponsive on ventilator. Noted with ECG changes. still febrile, now alert on vent, responds but cannot move. On pressors and inotropes. She is also oliguric in ATN. - Current Medication List Current Medications: Active Medications Acetaminophen (Ofirmev Injection -) 1,000 mg IVPB Q6H PRN PRN Reason: TEMP > 101* Last Admin: 05/04/18 11:59 Dose: 1,000 mg Chlorhexidine Gluconate (Hibiclens For Decolonization -) 1 applic TP HS NABEEL Last Admin: 05/03/18 22:53 Dose: 1 applic Cholestyramine Resin (Questran Packet -) 4 gm PO DAILY NABEEL Last Admin: 05/04/18 09:39 Dose: Not Given Clindamycin Phosphate (Cleocin 900 Mg Premix Ivpb -) 900 mg in 50 mls @ 100 mls /hr IVPB Q8H-IV NABEEL; Protocol Last Admin: 05/04/18 09:38 Dose: 100 mls/hr Levofloxacin (Levaquin 250 Mg Premixed Ivpb -) 250 mg in 50 mls @ 50 mls/hr IVPB DAILY NABEEL; Protocol Last Admin: 05/04/18 09:43 Dose: 50 mls/hr Dopamine HCl/Dextrose (Dopamine 400 Mg/D5w -) 400,000 mcg in 250 mls @ 15.692 mls/hr IVPB TITR NABEEL; Protocol Last Titration: 05/03/18 19:17 Dose: 7.5 mcg/kg/min, 23.537 mls/hr Norepinephrine Bitartrate 8, (000 mcg/ Dextrose) 500 mls @ 18.75 mls/hr IV TITR NABEEL; Protocol Last Admin: 05/03/18 21:58 Dose: 20 mcg/min, 75 mls/hr Vasopressin 50 units/ Sodium (Chloride) 100 mls @ 4 mls/hr IVPB ASDIR NABEEL; Protocol Last Admin: 05/04/18 06:00 Dose: 2 units/hr, 4 mls/hr Mupirocin (Bactroban Ointment (For Decolonization) -) 1 applic NS BID NABEEL Stop: 05/08/18 09:59 Last Admin: 05/04/18 09:39 Dose: 1 applic - Objective Vital Signs: Vital Signs Temperature 102.5 F H 05/04/18 08:00 Pulse Rate 63 05/04/18 08:25 Respiratory Rate 20 05/04/18 10:51 Blood Pressure 131/82 05/04/18 08:00 O2 Sat by Pulse Oximetry (%) 98 05/04/18 08:25 Constitutional: Yes: No Distress, Calm Eyes: Yes: Conjunctiva Clear HENT: Yes: Normocephalic Neck: Yes: Trachea Midline Cardiovascular: Yes: Regular Rate and Rhythm Respiratory: Yes: Mechanically Ventilated Gastrointestinal: Yes: Normal Bowel Sounds, Soft Extremities: Yes: WNL Edema: No Peripheral Pulses WNL: Yes Labs: CBC, BMP 05/04/18 05:00 05/04/18 05:00 INR, PTT INR 1.27 (0.82-1.09) H 05/04/18 05:00 Assessment/Plan Cardiac arrest due to sepsis with shock and respiratory failure with lactic acidosis, staph bacteremia. Doubt primary cardiac event. She is not a candidate for ischemia workup due to coagulopathy and thrombocytopenia. Vent management, pressors per ICU team. Abx per ID. Echo ordered. Assess EF and valves for vegitations from staph bacteremia. Prognosis is very poor.
--- NOTE | 2018-05-04 13:36 | PN ---
Progress Note (short form) - Note Progress Note: Awake, Opens eyes to verbal stimuli Doesn't move limbs to verbal command Vital Signs Period Temp Pulse Resp BP Sys/Sprague Pulse Ox Last 24 Hr 100.0 F-102.7 F 60-75 17-22 60-156/46-95 98-100 PE: Opens eyes to verbal stimuli Neck: Supple Lungs: CTA CVS: s1S2 Abd: Benign Ext: No edema Neuro: Opens eyes to stimuli, CMP Sodium 141 mmol/L (136-145) 05/04/18 05:00 Potassium 3.6 mmol/L (3.5-5.1) 05/04/18 05:00 Chloride 111 mmol/L (98-107) H 05/04/18 05:00 Carbon Dioxide 20 mmol/L (21-32) L 05/04/18 05:00 Anion Gap 10 (8-16) 05/04/18 05:00 BUN 56 mg/dL (7-18) H 05/04/18 05:00 Creatinine 2.0 mg/dL (0.55-1.02) H 05/04/18 05:00 Creat Clearance w eGFR 25.08 (>60) 05/03/18 20:50 POC Glucometer 138.85065 UNITS (80-120) 05/02/18 19:58 Random Glucose 159 mg/dL (74-106) H 05/04/18 05:00 Lactic Acid 1.6 mmol/L (0.0-2.0) 05/03/18 20:50 Calcium 7.0 mg/dL (8.5-10.1) L 05/04/18 05:00 Phosphorus 3.7 mg/dL (2.5-4.9) 05/04/18 05:00 Magnesium 2.8 mg/dL (1.8-2.4) H 05/04/18 05:00 Total Bilirubin 7.2 mg/dL (0.2-1.0) H 05/04/18 05:00 Direct Bilirubin 6.4 mg/dL (0.0-0.2) H 05/04/18 05:00 AST 123 U/L (15-37) H 05/04/18 05:00 ALT 102 U/L (12-78) H 05/04/18 05:00 Alkaline Phosphatase 213 U/L (45-117) H 05/04/18 05:00 Ammonia < 10 umol/L (11-32) L 05/02/18 21:03 Creatine Kinase 134 IU/L (26-192) 05/04/18 05:00 Troponin I 4.10 ng/ml (0.00-0.05) H* 05/04/18 05:00 C-Reactive Protein 34.1 MG/DL (0.00-0.3) H 05/04/18 05:00 Total Protein 5.1 g/dl (6.4-8.2) L 05/04/18 05:00 Albumin 1.6 g/dl (3.4-5.0) L 05/04/18 05:00 Total Amylase 26 U/L (25-115) 05/04/18 05:00 TSH 0.14 uIU/ml (0.358-3.74) L 05/02/18 21:03 Free T4 1.12 ng/dl (0.76-1.46) 05/03/18 10:20 Free T3 4.3 pg/ml (2.0-4.4) 05/03/18 01:50 Current Medications Generic Name Dose Route Start Last Admin Trade Name Freq PRN Reason Stop Dose Admin Acetaminophen 1,000 mg 05/04/18 03:21 05/04/18 11:59 Ofirmev Injection - IVPB 1,000 mg Q6H PRN Administration TEMP > 101* Chlorhexidine Gluconate 1 applic 05/03/18 22:00 05/03/18 22:53 Hibiclens For Decolonization - TP 1 applic HS NABEEL Administration Cholestyramine Resin 4 gm 05/03/18 10:00 05/04/18 09:39 Questran Packet - PO Not Given DAILY NABEEL Dopamine HCl/Dextrose 400,000 mcg in 250 mls @ 15.692 mls/hr 05/03/18 15:00 05/03/18 19:17 Dopamine 400 Mg/D5w - IVPB 7.5 mcg/kg/min TITR NABEEL 23.537 mls/hr Titration Protocol 5 MCG/KG/MIN Norepinephrine Bitartrate 8, 500 mls @ 18.75 mls/hr 05/03/18 22:00 05/03/18 21:58 000 mcg/ Dextrose IV 20 mcg/min TITR NABEEL 75 mls/hr Administration Protocol 5 MCG/MIN Vasopressin 50 units/ Sodium 100 mls @ 4 mls/hr 05/04/18 06:00 05/04/18 06:00 Chloride IVPB 2 units/hr ASDIR NABEEL 4 mls/hr Administration Protocol 2 UNITS/HR Cefazolin Sodium 2 gm/ 50 mls @ 200 mls/hr 05/04/18 13:30 Dextrose IVPB Q8H-IV NABEEL Mupirocin 1 applic 05/03/18 10:00 05/04/18 09:39 Bactroban Ointment (For Decolonization) - NS 05/08/18 09:59 1 applic BID NABEEL Administration A/P: Respiriatory Failure s/p Intubation Sepsis JUAN PABLO Abnormal TFT: Sick Euthyroid vs Subclinical Hyperthyroidism Mild nonspecific enlargement of left Adrenal on CT Scan Abnormal LFTs Mild Hyperglycemia: Monitor blood sugar TSH 0.14 FT4 1.12 T3 4.3 TPO, TSI result pending Ventilatory support Pressor support IV Abx Electrolyte replacement as necessary No further w/u or treatment necessary for her thyroid status at this point. Rpt TFT as outpt once she recovers from the acute illness Will F/u Problem List - Problems (1) Altered mental status Code(s): R41.82 - ALTERED MENTAL STATUS, UNSPECIFIED (2) Sepsis Code(s): A41.9 - SEPSIS, UNSPECIFIED ORGANISM
[2018-05-04 13:42] VITALS: BP 71/60; PULSE 71
[2018-05-04] MEDS ORDERED: CEFAZOLIN 2 GM/D5W 2 GM/50 ML ML IVPB SCH (14:15)
--- NOTE | 2018-05-04 22:05 | EKG ---
Test Reason : Blood Pressure : / mmHG Vent. Rate : 077 BPM Atrial Rate : 077 BPM P-R Int : 124 ms QRS Dur : 086 ms QT Int : 360 ms P-R-T Axes : 031 -09 027 degrees QTc Int : 407 ms NORMAL SINUS RHYTHM NORMAL ECG WHEN COMPARED WITH ECG OF 03-MAY-2018 10:07, ST NO LONGER DEPRESSED IN INFERIOR LEADS ST NO LONGER DEPRESSED IN ANTEROLATERAL LEADS T WAVE INVERSION NO LONGER EVIDENT IN INFERIOR LEADS T WAVE INVERSION NO LONGER EVIDENT IN LATERAL LEADS Confirmed by JUAN PABLO JONES MD ([id number]) on 05/04/2018 10:05:16 PM Referred By: Franko BAILEY Confirmed By:JUAN PABLO JONES MD
--- NOTE | 2018-05-04 22:16 | EKG ---
Test Reason : Blood Pressure : / mmHG Vent. Rate : 080 BPM Atrial Rate : 080 BPM P-R Int : 126 ms QRS Dur : 078 ms QT Int : 358 ms P-R-T Axes : 044 -02 -68 degrees QTc Int : 412 ms NORMAL SINUS RHYTHM WITH SINUS ARRHYTHMIA MARKED ST ABNORMALITY, POSSIBLE INFERIOR SUBENDOCARDIAL INJURY ABNORMAL ECG WHEN COMPARED WITH ECG OF 02-MAY-2018 19:28, VENT. RATE HAS DECREASED BY [address] MORE DEPRESSED LATERAL LEADS T WAVE INVERSION NOW EVIDENT IN INFERIOR LEADS T WAVE INVERSION NOW EVIDENT IN LATERAL LEADS Confirmed by JUAN PABLO JONES MD ([id number]) on 05/04/2018 10:15:53 PM Referred By: Confirmed By:JUAN PABLO JONES MD
--- NOTE | 2018-05-04 22:23 | EKG ---
Test Reason : Blood Pressure : / mmHG Vent. Rate : 129 BPM Atrial Rate : 129 BPM P-R Int : 124 ms QRS Dur : 072 ms QT Int : 270 ms P-R-T Axes : 048 -08 042 degrees QTc Int : 395 ms POOR DATA QUALITY, INTERPRETATION MAY BE ADVERSELY AFFECTED SINUS TACHYCARDIA POSSIBLE LEFT ATRIAL ENLARGEMENT LEFT VENTRICULAR HYPERTROPHY WITH REPOLARIZATION ABNORMALITY ABNORMAL ECG NO PREVIOUS ECGS AVAILABLE Confirmed by JUAN PABLO JONES MD ([id number]) on 05/04/2018 10:22:57 PM Referred By: Confirmed By:JUAN PABLO JONES MD
[2018-05-06 06:07] LABS: THYROID STIM IMMUNOGLOBULIN <0.10 IU/L (0.00-0.55)
== END 2018-05-04 15:05 | disposition short-term general hospital (02) | DRG 720 ==
LOC: JER 18:50 → JERBED 05-03 00:26 → UNDOADMIN 05-03 00:26 → JERBED 05-03 01:38 → JICU 05-03 04:43
PROVIDERS: ADMIT Internal Medicine; ATTEND Family Medicine
PROC: 05H633Z Insertion of Infusion Device into Left Subclavian Vein, Percutaneous Approach (ICD-10-PCS; principal; 2018-05-03)
PROC: 5A12012 Performance of Cardiac Output, Single, Manual (ICD-10-PCS; 2018-05-03)
PROC: 5A1945Z Respiratory Ventilation, 24-96 Consecutive Hours (ICD-10-PCS; 2018-05-03)
PROC: 0BH17EZ Insertion of Endotracheal Airway into Trachea, Via Natural or Artificial Opening (ICD-10-PCS; 2018-05-03)
DX: A41.9 Sepsis, unspecified organism (principal); K76.0 Fatty (change of) liver, not elsewhere classified; E87.6 Hypokalemia; J96.01 Acute respiratory failure with hypoxia; N17.9 Acute kidney failure, unspecified; R41.82 Altered mental status, unspecified; D72.829 Elevated white blood cell count, unspecified; D69.6 Thrombocytopenia, unspecified; Z88.0 Allergy status to penicillin; R65.21 Severe sepsis with septic shock; E87.2 Acidosis; E86.0 Dehydration; J18.9 Pneumonia, unspecified organism; I46.9 Cardiac arrest, cause unspecified; E05.90 Thyrotoxicosis, unspecified without thyrotoxic crisis or storm; M54.9 Dorsalgia, unspecified; G93.1 Anoxic brain damage, not elsewhere classified; J98.11 Atelectasis; G92 Toxic encephalopathy
CPT/HCPCS: 31500; 36415; 36600; 70450-TC; 71045-TC-FY; 71250-TC; 72125-TC; 72128-TC; 72131-TC; 74176-TC; 76705-TC; 76775-TC; 80048; 80053; 80076; 80307; 81003; 81015; 82140; 82150; 82550; 82803; 82962; 83605; 83735; 84100; 84439; 84443; 84445; 84481; 84484; 85025; 85027; 85610; 85651; 86140; 86376; 87040; 87070; 87086; 87186; 87205; 93005; 93010; 94002; 94640; 94660; 99285-25; G0480; J0131; J7030